=== PATIENT | male | born 1960 | race Caucasian/White ===

== ENCOUNTER 2020-06-05 15:31 | Emergency (ER) | payer OTHER ==
[2020-06-05 15:43] VITALS: RESP 18; TEMP 97.9
--- NOTE | 2020-06-05 16:21 | ED ---
General Adult HPI - General Chief complaint: Fall Stated complaint: headache Time Seen by Provider: 06/05/20 15:48 Source: patient, RN notes reviewed, old records reviewed Mode of arrival: ambulatory Limitations: no limitations - History of Present Illness Initial comments: 60-year-old male presenting from jail with [facility], head trauma that occurr ed yesterday. The patient had been taking a shower, he fell hitting his head. Staff Initially informed that he did not hit his head but today he states that he did hit his head and also is complaining of some left knee pain. Patient reports that he lost consciousness. He complains of a mild headache. He denies chest pain or dyspnea. Denies abdominal pain. Denies fever. Denies focal numbness or weakness. - Related Data Home Medications Medication Instructions Recorded Confirmed Acetaminophen Tab [Tylenol] 650 mg PO Q6H PRN 06/05/20 06/05/20 Albuterol Sulfate [Proair 1 puff INHALATION RT-Q6H 06/05/20 06/05/20 Respiclick] Albuterol Sulfate [Proair 1 puff INHALATION RT-Q6H PRN 06/05/20 06/05/20 Respiclick] Dexamethasone 6 mg PO DAILY 06/05/20 06/05/20 Insulin NPH/Reg Insulin 70/30 100 unit SQ BID@0900,1700 06/05/20 06/05/20 [humuLIN 70/30 VIAL] Loperamide HCl [Imodium A-D] 4 mg PO Q2H PRN 06/05/20 06/05/20 Metoprolol Tartrate [Lopressor] 25 mg PO BID@0900,1700 06/05/20 06/05/20 Pantoprazole Sodium [Protonix] 40 mg PO BID@0900,1700 06/05/20 06/05/20 Sucralfate [Carafate] 1 gm PO ACHS 06/05/20 06/05/20 Allergies Allergy/AdvReac Type Severity Reaction Status Date / Time No Known Allergies Allergy Verified 06/05/20 17:21 Review of Systems ROS Statement: Those systems with pertinent positive or pertinent negative responses have been documented in the HPI. ROS Other: All systems not noted in ROS Statement are negative. Past Medical History Past Medical History: Diabetes Mellitus, Sleep Apnea/CPAP/BIPAP Past Surgical History: No Surgical Hx Reported Past Psychological History: No Psychological Hx Reported Smoking Status: Current every day smoker Past Alcohol Use History: None Reported Past Drug Use History: None Reported General Exam Limitations: no limitations General appearance: alert, in no apparent distress Head exam: Present: atraumatic, normocephalic Eye exam: Present: normal appearance, PERRL ENT exam: Present: normal exam Neck exam: Present: normal inspection. Absent: tenderness, meningismus Respiratory exam: Present: normal lung sounds bilaterally. Absent: respiratory distress, wheezes GI/Abdominal exam: Present: soft. Absent: distended, tenderness, guarding Extremities exam: Present: joint swelling (Minimal ecchymosis at the left knee, no deformity) Neurological exam: Present: alert. Absent: motor sensory deficit Psychiatric exam: Present: normal affect, normal mood Skin exam: Present: warm, dry, intact. Absent: cyanosis, diaphoretic Course Vital Signs 06/05/20 06/05/20 15:34 17:42 Temperature 97.9 F Pulse Rate 85 94 Respiratory 18 18 Rate Blood Pressure 117/62 130/71 O2 Sat by Pulse 97 98 Oximetry Medical Decision Making - Medical Decision Making 60-year-old male status post fall with left knee pain, head injury, no loss consciousness. No anticoagulation. Head CT performed which is negative for intracranial hemorrhage or mass effect. CT of the cervical spine is negative for fracture or subluxation. The fall did occur yesterday. There was some minimal ecchymosis on the anterior left knee. X-ray performed which is negative for acute fracture dislocation. Patient is stable for discharge back to the jail. Disposition Clinical Impression: Fall, Contusion, knee, Concussion Disposition: HOME SELF-CARE Condition: Fair Instructions (If sedation given, give patient instructions): Fall Prevention for Older Adults (ED), Knee Sprain (ED), Concussion (ED) Is patient prescribed a controlled substance at d/c from ED?: No Referrals: Mariah Marie MD [Primary Care Provider] - 1-2 days Time of Disposition: 17:46
--- NOTE | 2020-06-05 17:04 | CT ---
EXAMINATION TYPE: CT brain carlos gerber con DATE OF EXAM: 06/05/2020 COMPARISON: None HISTORY: Fall. Injury to left side of head. CT DLP: 2530.7 mGycm Automated exposure control for dose reduction was used. Ventricles have normal size. There is no mass effect nor midline shift. There is no sign of intracran ial hemorrhage. There is cerebral atrophy. Calvarium is intact. There is some mucosal thickening in t he ethmoid and right maxillary sinus. There is calcification of the left globe. Cervical vertebra have normal alignment. Posterior elements are intact. There is multilevel mild cerv ical facet arthropathy. There is some narrowing and spur formation at C5-6 and C6-7. There is moderat e anterior osteophyte formation. There is calcified posterior disc herniation at C5-6 and elevation o f the posterior longitudinal ligament. There is some spinal stenosis at C5-6 on the right side with n eural foraminal impingement. IMPRESSION: No acute intracranial abnormality. Mild cerebral atrophy. Spondylotic changes in the cervical spine with right side C5-6 and C6-7 disc herniation and neural fo raminal impingement. No fracture.
--- NOTE | 2020-06-05 17:07 | XR ---
EXAMINATION TYPE: XR knee complete LT DATE OF EXAM: 06/05/2020 COMPARISON: NONE HISTORY: Knee pain TECHNIQUE: 3 views FINDINGS: There is some narrowing of the lateral joint space with spur formation of the femoral and t ibial condyles. I see no fracture nor dislocation. There is small knee joint effusion. There is spurr ing on the patella. IMPRESSION: Osteoarthritis more noticeable in the lateral joint space. No fracture seen.
[2020-06-05] MEDS ORDERED: HYDROcodone/APAP 5-325MG 1 EACH TAB PO STA (17:43)
[2020-06-05 17:44] VITALS: BP 130/71; PULSE 94
== END 2020-06-05 18:18 | disposition home or self-care (01) ==
LOC: EC 15:31
DX: S06.0X9A Concussion with loss of consciousness of unspecified duration, initial encounter (principal); S80.02XA Contusion of left knee, initial encounter; E11.9 Type 2 diabetes mellitus without complications; G47.30 Sleep apnea, unspecified; F17.200 Nicotine dependence, unspecified, uncomplicated; Z79.52 Long term (current) use of systemic steroids; Z79.4 Long term (current) use of insulin; Z79.899 Other long term (current) drug therapy; Z99.89 Dependence on other enabling machines and devices; W18.00XA Striking against unspecified object with subsequent fall, initial encounter; Y93.E1 Activity, personal bathing and showering
CPT/HCPCS: 70450; 72125; 99284

== ENCOUNTER 2020-06-07 07:41 | Inpatient (IN) | payer MEDICARE, OTHER ==
[2020-06-07] MEDS ORDERED: PANTOPRAZOLE 40 MG/10 ML VIAL IVP STA (07:53)
[2020-06-07] MEDS ORDERED: SODIUM CHLORIDE 0.9% 1,000 ML IV STA (07:53)
--- NOTE | 2020-06-07 07:56 | ED ---
General Adult HPI - General Chief complaint: Weakness Stated complaint: GI bleed Time Seen by Provider: 06/07/20 07:44 Source: patient, EMS, RN notes reviewed Mode of arrival: EMS Limitations: no limitations - History of Present Illness Initial comments: Patient is a pleasant 60-year-old male presenting to the emergency Department with reported change hemorrhage. Patient is unclear if stools have been red or black, stating he cannot look down there. Patient was admitted for [facility] facility several weeks ago. Patient was weak and could not walk around. Patient was then placed in [facility]. Patient had blood work done yesterday with hemoglobin of 5.7. Patient omits to feeling a little bit fatigued otherwise has no complaints. - Related Data Home Medications Medication Instructions Recorded Confirmed Acetaminophen Tab [Tylenol] 650 mg PO Q6H PRN 06/05/20 06/05/20 Albuterol Sulfate [Proair 1 puff INHALATION RT-Q6H 06/05/20 06/05/20 Respiclick] Albuterol Sulfate [Proair 1 puff INHALATION RT-Q6H PRN 06/05/20 06/05/20 Respiclick] Dexamethasone 6 mg PO DAILY 06/05/20 06/05/20 Insulin NPH/Reg Insulin 70/30 100 unit SQ BID@0900,1700 06/05/20 06/05/20 [humuLIN 70/30 VIAL] Loperamide HCl [Imodium A-D] 4 mg PO Q2H PRN 06/05/20 06/05/20 Metoprolol Tartrate [Lopressor] 25 mg PO BID@0900,1700 06/05/20 06/05/20 Pantoprazole Sodium [Protonix] 40 mg PO BID@0900,1700 06/05/20 06/05/20 Sucralfate [Carafate] 1 gm PO ACHS 06/05/20 06/05/20 Allergies Allergy/AdvReac Type Severity Reaction Status Date / Time No Known Allergies Allergy Verified 06/07/20 07:52 Review of Systems ROS Statement: Those systems with pertinent positive or pertinent negative responses have been documented in the HPI. ROS Other: All systems not noted in ROS Statement are negative. Constitutional: Denies: fever Eyes: Denies: eye pain ENT: Denies: ear pain Respiratory: Denies: cough, dyspnea Cardiovascular: Denies: chest pain Endocrine: Reports: fatigue Gastrointestinal: Denies: abdominal pain Genitourinary: Denies: dysuria Musculoskeletal: Denies: back pain Skin: Denies: rash Neurological: Denies: weakness Past Medical History Past Medical History: Diabetes Mellitus, Sleep Apnea/CPAP/BIPAP Past Surgical History: No Surgical Hx Reported Past Psychological History: No Psychological Hx Reported Smoking Status: Former smoker Past Alcohol Use History: None Reported Past Drug Use History: Marijuana General Exam Limitations: no limitations General appearance: alert, in no apparent distress Head exam: Present: normocephalic Eye exam: Present: normal appearance Neck exam: Present: normal inspection Respiratory exam: Present: normal lung sounds bilaterally Cardiovascular Exam: Present: regular rate, normal rhythm GI/Abdominal exam: Present: soft. Absent: tenderness Extremities exam: Present: normal inspection Neurological exam: Present: alert Psychiatric exam: Present: normal affect, normal mood Skin exam: Present: normal color Course Vital Signs 06/07/20 07:47 Temperature 99.6 F Pulse Rate 86 Respiratory 18 Rate Blood Pressure 123/66 O2 Sat by Pulse 97 Oximetry EKG Findings - EKG Comments: EKG Findings:: Normal sinus rhythm at 88. NE 184. QRS and 16. QT 376. QTc 454. Normal axis. LVH. No acute ST change. Medical Decision Making - Medical Decision Making Patient reevaluated and resting comfortably in bed. Patient updated on results and plan.Case was discussed with Dr. Marie, who will admit her patient. Blood transfusion ordered. Results with GI and pulmonary. - Lab Data Result diagrams: 06/07/20 08:22 06/07/20 08:22 Lab Results 06/07/20 06/07/20 06/07/20 Range/Units 08:22 08:22 08:22 WBC 33.3 H (3.8-10.6) k/uL RBC 2.00 L (4.30-5.90) m/uL Hgb 5.8 L* (13.0-17.5) gm/dL Hct 17.5 L* (39.0-53.0) % MCV 87.9 (80.0-100.0) fL MCH 29.0 (25.0-35.0) pg MCHC 33.0 (31.0-37.0) g/dL RDW 21.2 H (11.5-15.5) % Plt Count 304 (150-450) k/uL MPV 8.6 Hypochromasia Slight Anisocytosis Moderate Macrocytosis Slight PT 10.6 (9.0-12.0) sec INR 1.0 (<1.2) APTT 20.1 L (22.0-30.0) sec Sodium 135 L (137-145) mmol/L Potassium 4.1 (3.5-5.1) mmol/L Chloride 99 (98-107) mmol/L Carbon Dioxide 34 H (22-30) mmol/L Anion Gap 2 mmol/L BUN 25 H (9-20) mg/dL Creatinine 0.76 (0.66-1.25) mg/dL Est GFR (CKD-EPI)AfAm >90 (>60 ml/min/1.73 sqM) Est GFR (CKD-EPI)NonAf >90 (>60 ml/min/1.73 sqM) Glucose 117 H (74-99) mg/dL Calcium 8.0 L (8.4-10.2) mg/dL Total Bilirubin 0.4 (0.2-1.3) mg/dL AST 53 (17-59) U/L ALT 83 H (4-49) U/L Alkaline Phosphatase 60 (38-126) U/L Total Protein 5.0 L (6.3-8.2) g/dL Albumin 2.5 L (3.5-5.0) g/dL - Radiology Data Radiology results: image reviewed (Chest x-ray does show cardiomegaly. Bilateral multifocal acute infiltrates more on the left, consider Coban 19 infection.) Critical Care Time Critical Care Time: Yes Total Critical Care Time: 31 Disposition Clinical Impression: GI hemorrhage, Pneumonia due to COVID-19 virus Disposition: ADMITTED IP TO THIS [facility] Condition: Serious Is patient prescribed a controlled substance at d/c from ED?: No Referrals: Mariah Marie MD [Primary Care Provider] - 1-2 days Decision Time: 09:10
[2020-06-07 08:30] LABS: Anisocytosis Moderate; Hypochromasia Slight; MCV 87.9 fL (80.0-100.0); Macrocytosis Slight; Mean Platelet Volume 8.6; Platelet Count 304 k/uL (150-450); RDW 21.2 % (11.5-15.5)
--- NOTE | 2020-06-07 08:37 | XR ---
EXAMINATION TYPE: XR chest 1V portable DATE OF EXAM: 06/07/2020 COMPARISON: NONE HISTORY: Chest pain. TECHNIQUE: Single AP portable frontal upright view of the chest is obtained. FINDINGS: There are multifocal increased opacity is greatest in the left lung periphery. No pleural effusion or pneumothorax seen bilaterally. The cardiac silhouette size is mildly enlarged. Degenerat saurabh change bilateral glenohumeral joints. Overlying EKG leads. IMPRESSION: Cardiomegaly with bilateral multifocal acute infiltrates greatest in the left lung. Cons ider covid-19 infection.
[2020-06-07 08:38] LABS: HCT 17.5 % (39.0-53.0); HGB 5.8 gm/dL (13.0-17.5)
[2020-06-07 08:46] LABS: ALT 83 U/L (4-49); AST 53 U/L (17-59); African American GFR (CKD) >90 (>60 ml/min/1.73 sqM); Albumin 2.5 g/dL (3.5-5.0); Alkaline Phosphatase 60 U/L (38-126); Anion Gap 2 mmol/L; Blood Urea Nitrogen 25 mg/dL (9-20); Carbon Dioxide 34 mmol/L (22-30); Chloride 99 mmol/L (98-107); Glucose 117 mg/dL (74-99); Non-African American GFR(CKD) >90 (>60 ml/min/1.73 sqM); Potassium 4.1 mmol/L (3.5-5.1); Prothrombin Time 10.6 sec (9.0-12.0); Sodium 135 mmol/L (137-145); Total Bilirubin 0.4 mg/dL (0.2-1.3)
[2020-06-07 08:52] LABS: Partial Thromboplastin Time 20.1 sec (22.0-30.0)
[2020-06-07] MEDS ORDERED: NALOXONE 0.4 MG/ML 1 ML VIAL IV PRN (09:11)
[2020-06-07 09:14] LABS: Band Neutrophils % 3 %; Basophils # (M) 0.33 k/uL (0-0.2); Metamyelocytes % 2 %; Myelocytes # (M) 0.33 k/uL (0); Myelocytes % 1 %; Neutrophils % (M) 79 %; Nucleated Red Blood Cells 1 /100 WBC (0-0); Total Cells Counted 200
[2020-06-07 09:15] LABS: Lymphocytes # (M) 3.63 k/uL (1.0-4.8); Metamyelocytes # (M) 0.66 k/uL (0); Monocytes # (M) 1.32 k/uL (0-1.0); Polychromasia Present
[2020-06-07] MEDS ORDERED: PANTOPRAZOLE 40 MG/10 ML VIAL IV SCH (09:15)
[2020-06-07] MEDS ORDERED: ACETAMINOPHEN TAB 325 MG TAB PO PRN (09:49)
[2020-06-07] MEDS ORDERED: ALBUTEROL HFA INHALER INHALATION PRN (09:49)
[2020-06-07 09:55] LABS: Appearance,Urine Clear (Clear); Bilirubin,Urine Negative (Negative); Blood,Urine Negative (Negative); Color,Urine Light Yellow; Glucose,Urine (UA) 1+ (Negative); Ketones,Urine Negative (Negative); Leukocyte Esterase,Urine Negative (Negative); Nitrite,Urine Negative (Negative); Protein,Urine Negative (Negative); Specific Gravity,Urine 1.015 (1.001-1.035); Urobilinogen,Urine <2.0 mg/dL (<2.0)
[2020-06-07] MEDS: CHOLECALCIFEROL 25 MCG (1000 IU) TABLET PO SCH ×2 (10:52→10:54)
[2020-06-07] MEDS: ZINC SULFATE 220 MG CAP PO SCH ×2 (10:53→10:55)
[2020-06-07] MEDS: ASCORBIC ACID 500 MG TAB PO SCH ×2 (10:53→21:20)
[2020-06-07] MEDS: CLOTRIMAZOLE/BETAMETH 1-0.05% CREAM 45 GM TUBE TOPICAL SCH (10:55)
[2020-06-07 11:30] LABS: Glucose,Whole Blood 71 mg/dL (75-99)
[2020-06-07] MEDS: INSULIN ASPART (NovoLOG) 100 UNIT/ML VIAL SQ SCH ×3 (13:16→21:20)
[2020-06-07] MEDS: SODIUM CHLORIDE 0.9% 1,000 ML IV SCH ×2 (13:21→17:42)
[2020-06-07] MEDS: SUCRALFATE 1 GM TAB PO SCH ×3 (13:21→21:20)
--- NOTE | 2020-06-07 15:39 | P.CNPUL ---
History of Present Illness Consult date: 06/07/20 Reason for consult: dyspnea, other Chief complaint: Acute GI blood loss anemia, recent COVID 19 History of present illness: This is a 60-year-old white male patient of Dr. Marie, with recent history of COVID 19 related pneumonia, hospitalized at the [facility] and subsequently discharged to [facility] on the [facility] following his hospitalization. He was on oxygen at the care home at 3 L/m, he was still completing his course of oral Decadron 6 mg daily, the patient was not on any anticoagulants. He was brought into the hospital on 06/07/2020 for evaluation of severe anemia, he is outpatient blood work at the [facility] revealed hemoglobin of 5.7, patient is unsure whether his stools have been red or black, he did report weakness, and he was having difficulty walking at the [facility]. No abdominal discomf ort, patient had no prior history of GI bleeding, no prior history of colonoscopies. He is not on any chronic anticoagulation aspirin, or NSAIDs. His medical history includes diabetes mellitus type 2, obstructive sleep apnea on CPAP therapy, he is former smoker, chronic diastolic CHF, previous history of myocardial infarction, secondary polycythemia, muscle weakness, and gait dysfunction. His chest x-ray showed cardiomegaly with bilateral multifocal acute infiltrates, greatest in the left lung. His crit was 19 PCR a retest was negative. His white count was 33, his hemoglobin was 5.8, hematocrit was 17.5, his neutrophils were 27, INR was 1.0, PT was 10.6, sodium was 135, potassium is 4.1, chloride was 99, CO2 34, BUN was 25, creatinine was 0.76, AST was 53, ALT was 83, alkaline phosphatase was 60, urinalysis showed 1+ glucose but no evidence of infection, stool for occult blood was positive. Patient is receiving 2 units of packed red blood cell transfusion in the emergency departm ent, he is also getting IV fluids at 100 ML per hour, he was started on Protonix, there has been no active bleeding thus far, GI consultation was requested and is pending at this time, he continues on his oral dexamethasone 6 mg daily, does not appear to be in any acute respiratory distress. He is in sinus mechanism with a controlled rate, no tachycardia, he is on room air with a pulse ox of 95%, blood pressure is 126/74. Review of Systems All systems: negative Constitutional: Reports fatigue, Reports malaise, Reports weakness, Denies chills, Denies fever Eyes: denies blurred vision, denies pain Ears, nose, mouth and throat: Denies headache, Denies sore throat Cardiovascular: Denies chest pain, Denies shortness of breath Respiratory: Reports dyspnea, Reports respiratory infections, Denies cough Gastrointestinal: Denies abdominal pain, Denies diarrhea, Denies nausea, Denies vomiting Musculoskeletal: Denies myalgias Integumentary: Denies pruritus, Denies rash Neurological: Denies numbness, Denies weakness Psychiatric: Denies anxiety, Denies depression Endocrine: Denies fatigue, Denies weight change Past Medical History Past Medical History: Diabetes Mellitus, Sleep Apnea/CPAP/BIPAP Past Surgical History: No Surgical Hx Reported Past Psychological History: No Psychological Hx Reported Smoking Status: Former smoker Past Alcohol Use History: None Reported Past Drug Use History: Marijuana Medications and Allergies Home Medications Medication Instructions Recorded Confirmed Type Acetaminophen Tab [Tylenol] 650 mg PO Q6H PRN 06/05/20 06/07/20 History Albuterol Sulfate [Proair 1 puff INHALATION RT-Q6H 06/05/20 06/07/20 History Respiclick] Albuterol Sulfate [Proair 1 puff INHALATION RT-Q6H PRN 06/05/20 06/07/20 History Respiclick] Dexamethasone 6 mg PO DAILY@0900 06/05/20 06/07/20 History Insulin NPH/Reg Insulin 70/30 100 unit SQ BID@0900,1700 06/05/20 06/07/20 History [humuLIN 70/30 VIAL] Loperamide HCl [Imodium A-D] 4 mg PO Q2H PRN 06/05/20 06/07/20 History Metoprolol Tartrate [Lopressor] 25 mg PO BID@0900,1700 06/05/20 06/07/20 History Pantoprazole Sodium [Protonix] 40 mg PO BID@0900,1700 06/05/20 06/07/20 History Sucralfate [Carafate] 1 gm PO ACHS 06/05/20 06/07/20 History Clotrimazole/Betameth Cream 1 applic TOPICAL Q12H 06/07/20 06/07/20 History [Lotrisone] Zguard 1 applic TOPICAL Q12H 06/07/20 06/07/20 History Allergies Allergy/AdvReac Type Severity Reaction Status Date / Time No Known Allergies Allergy Verified 06/07/20 09:10 Physical Exam Vitals: Vital Signs Temp Pulse Resp BP Pulse Ox 06/07/20 14:30 84 10 L 130/75 98 06/07/20 14:00 77 16 126/74 97 06/07/20 13:33 97.8 F 86 20 126/74 95 06/07/20 13:30 90 29 H 113/68 95 06/07/20 13:07 81 16 113/68 95 06/07/20 13:04 98 F 74 18 132/74 96 06/07/20 13:00 84 24 130/77 94 L 06/07/20 12:59 82 17 130/77 06/07/20 12:30 82 19 109/68 93 L 06/07/20 12:00 89 16 119/69 06/07/20 11:30 87 16 118/73 06/07/20 11:04 98 F 88 18 06/07/20 11:00 80 16 112/65 06/07/20 10:34 98 F 92 18 112/65 98 06/07/20 10:30 90 17 123/70 06/07/20 10:25 98 F 86 18 123/70 06/07/20 10:00 105 H 18 118/67 06/07/20 09:30 85 18 110/58 97 06/07/20 09:00 87 18 115/87 95 06/07/20 07:47 99.6 F 86 18 123/66 97 Intake and Output 06/07/20 06/07/20 06/07/20 06:59 14:59 22:59 Intake Total 278 Balance 278 Intake: Blood Product 278 Rc Pheresis As-3 Unit 0 [id number] Rc Pheresis As-3 Unit 278 [id number] Other: Weight 104.326 kg GENERAL EXAM: Alert, pleasant, 60-year-old white male, resting on the gurney in the emergency department, receiving a blood transfusion, arousable, room air pulse ox is 98%, appears somewhat disheveled, weak, but denies any acute distress, comfortable. HEAD: Normocephalic/atraumatic. EYES: Normal reaction of pupils, equal size. Conjunctiva pink, sclera white. NOSE: Clear with pink turbinates. THROAT: No erythema or exudates. NECK: No masses, no JVD, no thyroid enlargement, no adenopathy. CHEST: No chest wall deformity. Symmetrical expansion. LUNGS: Equal air entry with no crackles, wheeze, rhonchi or dullness. CVS: Regular rate and rhythm, normal S1 and S2, no gallops, no murmurs, no rubs ABDOMEN: Soft, nontender. No hepatosplenomegaly, normal bowel sounds, no guarding or rigidity. EXTREMITIES: No clubbing, no edema, no cyanosis, 2+ pulses and upper and lower extremities. MUSCULOSKELETAL: Muscle strength and tone normal. SPINE: No scoliosis or deformity SKIN: No rashes CENTRAL NERVOUS SYSTEM: Alert and oriented -3. No focal deficits, tone is normal in all 4 extremities. PSYCHIATRIC: Alert and oriented -3. Appropriate affect. Intact judgment and insight. Results - Laboratory Findings CBC and BMP: 06/07/20 08:22 06/07/20 08:22 PT/INR, D-dimer PT 10.6 sec (9.0-12.0) 06/07/20 08:22 INR 1.0 (<1.2) 06/07/20 08:22 Abnormal lab findings: Abnormal Labs 06/07/20 06/07/20 06/07/20 08:15 08:22 08:22 WBC 33.0 H RBC 2.00 L Hgb 5.8 L* Hct 17.5 L* RDW 21.2 H Neutrophils # (Manual) 27.00 H Monocytes # (Manual) 1.32 H Basophils # (Manual) 0.33 H Metamyelocytes # (Man) 0.66 H Myelocytes # (Manual) 0.33 H Nucleated RBCs 1 H APTT 20.1 L Sodium Carbon Dioxide BUN Glucose POC Glucose (mg/dL) Calcium ALT Total Protein Albumin Urine Glucose (UA) Crossmatch See Detail 06/07/20 06/07/20 06/07/20 08:22 09:28 11:24 WBC RBC Hgb Hct RDW Neutrophils # (Manual) Monocytes # (Manual) Basophils # (Manual) Metamyelocytes # (Man) Myelocytes # (Manual) Nucleated RBCs APTT Sodium 135 L Carbon Dioxide 34 H BUN 25 H Glucose 117 H POC Glucose (mg/dL) 71 L Calcium 8.0 L ALT 83 H Total Protein 5.0 L Albumin 2.5 L Urine Glucose (UA) 1+ H Crossmatch - Diagnostic Findings Chest x-ray: report reviewed, image reviewed Assessment and Plan Plan: Assessment: #1. Acute GI blood loss anemia, patient presented with a hemoglobin of 5.8, requiring transfusion with 2 units of packed red blood cells #2. Recent history of COVID 19 pneumonia, patient was undergone rehab at the [facility] on the [place], was still completing his Decadron course. Was not on any anticoagulation at the [facility] #3. Leukocytosis, rule out possibility of pneumonia, although patient denies any significant pulmonary symptoms #4. Chronic hypoxic respiratory failure related to recent history of COVID19 pneumonia #5. Former smoker #6. Diabetes mellitus type 2 #7. History of sleep apnea on CPAP #8. Previous history of myocardial infarction #9. Previous history of chronic CHF, with a diastolic dysfunction #10. General medical debility, gait instability, recent falls Plan: Continue IV hydration, continue blood transfusion, patient is receiving a total of 2 units of blood, has had no active bleeding since coming in to the emergency department, he is awaiting a bed in the intensive care unit, hemodynamically he is stable, mild shortness of breath, no acute respiratory distress, we'll send a pro-calcitonin level, he continues on oral Decadron, vitamins, apply SCDs to lower extremities, continue PPI therapy, GI consultation is pending, continue monitoring for signs of bleeding, serial H&H's, close hemodynamic monitoring. We will continue to follow I performed a history & physical examination of the patient and discussed their management with my nurse practitioner, Lorie Talamantes. I reviewed the nurse practitioner's note and agree with the documented findings and plan of care. Lung sounds are positive for diminished breath sounds. The findings and the impression was discussed with the patient. I attest to the documentation by the nurse practitioner. Time with Patient: Greater than 30
[2020-06-07 16:51] LABS: Glucose,Whole Blood 61 mg/dL (75-99)
[2020-06-07 16:51] LABS: Glucose,Whole Blood 61 mg/dL (75-99)
[2020-06-07 17:00] LABS: Glucose,Whole Blood 61 mg/dL (75-99)
[2020-06-07 17:03] LABS: Anisocytosis Slight; HCT 23.5 % (39.0-53.0); Hypochromasia Slight; MCH 29.3 pg (25.0-35.0); MCHC 32.9 g/dL (31.0-37.0); MCV 88.8 fL (80.0-100.0); Macrocytosis Slight; Platelet Count 258 k/uL (150-450); Poikilocytosis Slight; RBC 2.65 m/uL (4.30-5.90); RDW 19.9 % (11.5-15.5)
[2020-06-07] MEDS: INSULN ASP PRT/INSULIN ASPART 100 UNIT/ML 10 ML VIAL SQ SCH (17:04)
[2020-06-07 17:17] LABS: Glucose,Whole Blood 74 mg/dL (75-99)
[2020-06-07 17:19] LABS: HGB 7.8 gm/dL (13.0-17.5)
[2020-06-07 17:36] LABS: Band Neutrophils % 3 %; Lymphocytes # (M) 4.83 k/uL (1.0-4.8); Monocytes # (M) 0.91 k/uL (0-1.0); Neutrophils % (M) 79 %; Nucleated Red Blood Cells 1 /100 WBC (0-0); Polychromasia Present; Total Cells Counted 200; WBC 30.2 k/uL (3.8-10.6)
[2020-06-07] MEDS: METOPROLOL TARTRATE 25 MG TAB PO SCH (18:37)
--- NOTE | 2020-06-07 18:50 | P.HPIM ---
History of Present Illness H&P Date: 06/07/20 Chief Complaint: Anemia, blood loss, fatigue burgundy stools This is a 60-year-old gentleman with known history of diabetes mellitus type 2, who was transferred from [facility] in [place] [facility] secondary to burgundy stools. He also has elevated troponin vital pneumonia hypoxemia rest or failure on BiPAP, bacteriuria without pyuria, acute renal insufficiency, elevated transaminitis, and his abdomen mild lysis. He comes in from [facility], for which he presented on 05/28/2020 for a 2 day history of shortness of breath. Was diagnosed to have Covid infection at that time. And admitted to ICU at that time and also had arm blood loss anemia, for which she was seen by gastroenterology.. He was discharged to [facility] in [place] [facility] on 06/03/2020 for short-term rehabilitation. We did stat labs and hemoglobin was 5.9, he was immediately transferred to the emergency room for evaluation. He was recently diagnosed to have covid infection s/p convalescent plasma, he was not a candidate for 7 days of ear that time secondary to elevation of transaminase. Received low-dose heparin Lovenox 40 mg daily, discharged with dexamethasone to complete 10 days. on dexamethasonne, hx of COPD, quit tob 3-4 wks ago Imaging studies are not [facility], shows type II NJ with demand ischemia, from sepsis and rhabdo, EF 55%, with mild apical and septal hypokinesia. She also was tested for C. diff which was negative, has always azotemia most likely secondary to hemoconcentration, he was discharged facility with Carafate before meals and at bedtime, loperamide, dexamethasone 6 mg daily, metoprolol, Protonix 40 twice a day. Heart cath was 2005, EF 60%, normal coronaries. Hemoglobin was 10.4 on discharge from the other facility, with platelets of 253. WBC count of 13.51 In the emergency room, we have seen he is agitated, that he voided in his [place], and he's been waiting for 20 minutes to have somebody cleanup he is blanket. Nurses are assisting him currently. He was sinus rhythm, EKG shows LVH, heart rate 88, blood pressure is stable, 126/74, heart rate 77, T-max 97.6, O2 sats 97%, on room air, wbc 30k hemoglobin 5.9 occult stools positive, Covid negative patient would be seen consultation by pulmonary, and gas and nephrology. Patient might have steroid induced gastritis, dexamethasone is on hold, continue PPIs 40 twice a day Protonix, transfuse 2 units of packed red blood cell for initial hemoglobin of 5.9. inr1 0.0 Review of Systems Constitutional: Reports as per HPI, Denies anorexia, Denies chills, Denies chronic headaches, Denies chronic pain, Denies daytime sleepiness, Denies fatigue, Denies fever, Denies lethargy, Denies malaise, Denies night sweats, Denies poor appetite, Denies sweats, Denies weakness, Denies weight gain, Denies weight loss Ears, nose, mouth and throat: Reports as per HPI, Denies ant. neck pain, Denies bleeding gums, Denies dental pain, Denies dysphagia, Denies epistaxis, Denies headache, Denies hoarseness, Denies mouth pain, Denies nasal congestion, Denies nasal discharge, Denies neck fullness/pressure, Denies neck lump, Denies nose pain, Denies odynophagia, Denies post-nasal drip, Denies sinus pain, Denies sinus pressure, Denies swelling in mouth, Denies swelling in throat, Denies sore throat, Denies vertigo, Denies voice changes Cardiovascular: Reports as per HPI, Reports dyspnea on exertion Respiratory: Reports as per HPI, Denies congestion, Denies cough, Denies cough with sputum, Denies dyspnea, Denies excessive sputum, Denies hemoptysis, Denies home oxygen, Denies pain, Denies pain on inspiration, Denies pleurisy, Denies respiratory infections, Denies sleep apnea, Denies snoring, Denies wheezing Gastrointestinal: Reports as per HPI Genitourinary: Reports as per HPI Musculoskeletal: Reports as per HPI, Denies arm numbness/tingling, Denies atrophy, Denies fractures, Denies frequent falls, Denies gait dysfunction, Denies hot joints, Denies leg numbness/tingling, Denies limitation of motion, Denies loss of height, Denies low back pain, Denies morning stiffness, Denies muscle cramps, Denies muscle weakness, Denies myalgias, Denies neck pain, Denies neck stiffness, Denies prior amputations, Denies redness of joints, Denies shooting arm pain, Denies shooting leg pain Integumentary: Reports as per HPI, Denies acne, Denies boils, Denies brittle nails, Denies change in hair/nails, Denies color changes, Denies darkening of skin, Denies depigmentation, Denies dryness, Denies foot/leg ulcers, Denies growths, Denies hirsutism, Denies lesions, Denies onychomycosis, Denies pruritus, Denies rash, Denies sores, Denies striae, Denies unusual bruising, De nies wounds Neurological: Reports as per HPI, Denies aphasia, Denies ataxia, Denies balance difficulties, Denies burning pain, Denies change in mentation, Denies change in smell/taste, Denies change in speech, Denies confusion, Denies convulsions, Denies double vision, Denies gait dysfunction, Denies head injury, Denies headaches, Denies hearing difficulties, Denies lack of coordination, Denies loss of vision, Denies memory loss, Denies migraines, Denies motor disturbance, Denies numbness, Denies paralysis, Denies paresthesias, Denies seizures, Denies sensory deficit, Denies spasticity, Denies syncope, Denies tic, Denies tingling, Denies transient paralysis, Denies tremors, Denies vertigo, Denies weakness, Denies visual changes Psychiatric: Reports as per HPI, Reports irritability Hematologic/Lymphatic: Reports as per HPI Allergic/Immunologic: Reports as per HPI Past Medical History Past Medical History: Diabetes Mellitus, Sleep Apnea/CPAP/BIPAP History of Any Multi-Drug Resistant Organisms: None Reported Past Surgical History: No Surgical Hx Reported Past Anesthesia/Blood Transfusion Reactions: No Reported Reaction Past Psychological History: No Psychological Hx Reported Smoking Status: Former smoker Past Alcohol Use History: None Reported Past Drug Use History: Marijuana Additional History: Sleep apnea COPD - Past Family History Father History Unknown: Yes Family Medical History: Coronary Artery Disease (CAD) Mother History Unknown: Yes Family Medical History: Coronary Artery Disease (CAD) Additional Family Medical History / Comment(s): 5 brothers healthy, 5 sisters okay, 1 boy and 1 girl, with asthma Medications and Allergies Home Medications Medication Instructions Recorded Confirmed Type Acetaminophen Tab [Tylenol] 650 mg PO Q6H PRN 06/05/20 06/07/20 History Albuterol Sulfate [Proair 1 puff INHALATION RT-Q6H 06/05/20 06/07/20 History Respiclick] Albuterol Sulfate [Proair 1 puff INHALATION RT-Q6H PRN 06/05/20 06/07/20 History Respiclick] Dexamethasone 6 mg PO DAILY@0900 06/05/20 06/07/20 History Insulin NPH/Reg Insulin 70/30 100 unit SQ BID@0900,1700 06/05/20 06/07/20 History [humuLIN 70/30 VIAL] Loperamide HCl [Imodium A-D] 4 mg PO Q2H PRN 06/05/20 06/07/20 History Metoprolol Tartrate [Lopressor] 25 mg PO BID@0900,1700 06/05/20 06/07/20 History Pantoprazole Sodium [Protonix] 40 mg PO BID@0900,1700 06/05/20 06/07/20 History Sucralfate [Carafate] 1 gm PO ACHS 06/05/20 06/07/20 History Clotrimazole/Betameth Cream 1 applic TOPICAL Q12H 06/07/20 06/07/20 History [Lotrisone] Zguard 1 applic TOPICAL Q12H 06/07/20 06/07/20 History Allergies Allergy/AdvReac Type Severity Reaction Status Date / Time No Known Allergies Allergy Verified 06/07/20 09:10 Physical Exam Vitals: Vital Signs Temp Pulse Pulse Resp BP BP Pulse Ox 06/07/20 16:52 97.6 F 79 20 130/64 94 L 06/07/20 16:00 83 20 145/76 92 L 06/07/20 15:41 97.6 F 80 20 135/66 06/07/20 14:30 84 10 L 130/75 98 06/07/20 14:00 77 16 126/74 97 06/07/20 13:33 97.8 F 86 20 126/74 95 06/07/20 13:30 90 29 H 113/68 95 06/07/20 13:07 81 16 113/68 95 06/07/20 13:04 98 F 74 18 132/74 96 06/07/20 13:00 84 24 130/77 94 L 06/07/20 12:59 82 17 130/77 06/07/20 12:30 82 19 109/68 93 L 06/07/20 12:00 89 16 119/69 06/07/20 11:30 87 16 118/73 06/07/20 11:04 98 F 88 18 06/07/20 11:00 80 16 112/65 06/07/20 10:34 98 F 92 18 112/65 98 06/07/20 10:30 90 17 123/70 06/07/20 10:25 98 F 86 18 123/70 06/07/20 10:14 97.6 F 80 20 135/66 96 06/07/20 10:00 105 H 18 118/67 06/07/20 09:30 85 18 110/58 97 06/07/20 09:00 87 18 115/87 95 06/07/20 07:47 99.6 F 86 18 123/66 97 Intake and Output 06/07/20 06/07/20 06/07/20 06:59 14:59 22:59 Intake Total 278 283 Balance 278 283 Intake: Blood Product 278 283 Rc Pheresis As-3 Unit 0 283 [id number] Rc Pheresis As-3 Unit 278 [id number] Other: # Voids 0 Weight 104.326 kg - Constitutional General appearance: cooperative, no acute distress - EENT Eyes: EOMI, PERRLA, dentition normal, normal appearance ENT: NA/AT, normal oropharynx - Neck Neck: normal ROM - Respiratory Respiratory: bilateral: CTA, negative: diminished, dullness - Cardiovascular Rhythm: regular Heart sounds: normal: S1, S2 Abnormal Heart Sounds: no systolic murmur, no diastolic murmur, no rub, no S3 Gallop, no S4 Gallop, no click, no other - Gastrointestinal General gastrointestinal: normal bowel sounds, soft - Integumentary Integumentary: normal - Neurologic Neurologic: CNII-XII intact - Musculoskeletal Musculoskeletal: gait normal, strength equal bilaterally - Psychiatric Psychiatric: A&O x's 3, appropriate affect, intact judgment & insight Results CBC & Chem 7: 06/07/20 16:51 06/07/20 08:22 Labs: Abnormal Lab Results - Last 24 Hours (Table) 06/07/20 06/07/20 06/07/20 Range/Units 08:15 08:22 08:22 WBC 33.0 H (3.8-10.6) k/uL RBC 2.00 L (4.30-5.90) m/uL Hgb 5.8 L* (13.0-17.5) gm/dL Hct 17.5 L* (39.0-53.0) % RDW 21.2 H (11.5-15.5) % Neutrophils # (Manual) 27.00 H (1.3-7.7) k/uL Lymphocytes # (Manual) (1.0-4.8) k/uL Monocytes # (Manual) 1.32 H (0-1.0) k/uL Basophils # (Manual) 0.33 H (0-0.2) k/uL Metamyelocytes # (Man) 0.66 H (0) k/uL Myelocytes # (Manual) 0.33 H (0) k/uL Nucleated RBCs 1 H (0-0) /100 WBC APTT 20.1 L (22.0-30.0) sec Sodium (137-145) mmol/L Carbon Dioxide (22-30) mmol/L BUN (9-20) mg/dL Glucose (74-99) mg/dL POC Glucose (mg/dL) (75-99) mg/dL Calcium (8.4-10.2) mg/dL ALT (4-49) U/L Total Protein (6.3-8.2) g/dL Albumin (3.5-5.0) g/dL Urine Glucose (UA) (Negative) Crossmatch See Detail 06/07/20 06/07/20 06/07/20 Range/Units 08:22 09:28 11:24 WBC (3.8-10.6) k/uL RBC (4.30-5.90) m/uL Hgb (13.0-17.5) gm/dL Hct (39.0-53.0) % RDW (11.5-15.5) % Neutrophils # (Manual) (1.3-7.7) k/uL Lymphocytes # (Manual) (1.0-4.8) k/uL Monocytes # (Manual) (0-1.0) k/uL Basophils # (Manual) (0-0.2) k/uL Metamyelocytes # (Man) (0) k/uL Myelocytes # (Manual) (0) k/uL Nucleated RBCs (0-0) /100 WBC APTT (22.0-30.0) sec Sodium 135 L (137-145) mmol/L Carbon Dioxide 34 H (22-30) mmol/L BUN 25 H (9-20) mg/dL Glucose 117 H (74-99) mg/dL POC Glucose (mg/dL) 71 L (75-99) mg/dL Calcium 8.0 L (8.4-10.2) mg/dL ALT 83 H (4-49) U/L Total Protein 5.0 L (6.3-8.2) g/dL Albumin 2.5 L (3.5-5.0) g/dL Urine Glucose (UA) 1+ H (Negative) Crossmatch 06/07/20 06/07/20 06/07/20 Range/Units 16:34 16:35 16:51 WBC 30.2 H (3.8-10.6) k/uL RBC 2.65 L (4.30-5.90) m/uL Hgb 7.8 L D (13.0-17.5) gm/dL Hct 23.5 L (39.0-53.0) % RDW 19.9 H (11.5-15.5) % Neutrophils # (Manual) 24.70 H (1.3-7.7) k/uL Lymphocytes # (Manual) 4.83 H (1.0-4.8) k/uL Monocytes # (Manual) (0-1.0) k/uL Basophils # (Manual) (0-0.2) k/uL Metamyelocytes # (Man) (0) k/uL Myelocytes # (Manual) (0) k/uL Nucleated RBCs 1 H (0-0) /100 WBC APTT (22.0-30.0) sec Sodium (137-145) mmol/L Carbon Dioxide (22-30) mmol/L BUN (9-20) mg/dL Glucose (74-99) mg/dL POC Glucose (mg/dL) 61 L 61 L (75-99) mg/dL Calcium (8.4-10.2) mg/dL ALT (4-49) U/L Total Protein (6.3-8.2) g/dL Albumin (3.5-5.0) g/dL Urine Glucose (UA) (Negative) Crossmatch 06/07/20 06/07/20 Range/Units 16:52 17:14 WBC (3.8-10.6) k/uL RBC (4.30-5.90) m/uL Hgb (13.0-17.5) gm/dL Hct (39.0-53.0) % RDW (11.5-15.5) % Neutrophils # (Manual) (1.3-7.7) k/uL Lymphocytes # (Manual) (1.0-4.8) k/uL Monocytes # (Manual) (0-1.0) k/uL Basophils # (Manual) (0-0.2) k/uL Metamyelocytes # (Man) (0) k/uL Myelocytes # (Manual) (0) k/uL Nucleated RBCs (0-0) /100 WBC APTT (22.0-30.0) sec Sodium (137-145) mmol/L Carbon Dioxide (22-30) mmol/L BUN (9-20) mg/dL Glucose (74-99) mg/dL POC Glucose (mg/dL) 61 L 74 L (75-99) mg/dL Calcium (8.4-10.2) mg/dL ALT (4-49) U/L Total Protein (6.3-8.2) g/dL Albumin (3.5-5.0) g/dL Urine Glucose (UA) (Negative) Crossmatch Thrombosis Risk Factor Assmnt - DVT/VTE Prophylaxis DVT/VTE Prophylaxis: Mechanical Prophylaxis ordered, Contraindicated - See note - Choose All That Apply Each Factor Represents 1 point: Age 41-60 years, Obesity (BMI >25) Thrombosis Risk Factor Assessment Total Risk Factor Score: 2 Thrombosis Risk Factor Assessment Level: Low Risk Assessment and Plan Plan: 1. Acute GI bleed, suspect upper, steroid gastritis most likely secondary to dexamethasone, currently on Protonix 40 mg twice a day, and Carafate 1 g 4 times a day. Consult with gastrology, status post 2 units of packed red blood cell blood transfusion 2. Acute blood loss severe anemia, t requiring 2 units of packed red blood cell transfusion today. 3. Covid diagnosed 05/27/2020, status post convalescent Serum and hypoxemia dexamethasone is still recommended at this time by pulmonary, 6 mg daily 4. Diabetes mellitus type 2, with hyperglycemia, continue on NovoLog Mix 70/30 100 units twice a day, with food and a scale 5. Type II NJ, secondary to Covid, on metoprolol 25 mg twice a day 6. Obstructive sleep apnea on CPAP device, and O2 supplementation at at bedtime 7. COPD without any current exacerbation, 8. Tobacco dependency for which she quit 3 weeks prior to admission 9. GERD 10. GI prophylaxis on PPI 11. DVT prophylaxis with PETER hose, acute GI bleed, pharmacological invention is contraindicated 12. Leukocytosis, possibly related to dexamethasone, however has leukemoid reaction, and myelocytes or metamyelocytes with manual review, might need oncology, monitor, obtain pro-calcitonin level
[2020-06-07 21:05] LABS: Glucose,Whole Blood 175 mg/dL (75-99)
[2020-06-07] MEDS: PANTOPRAZOLE 40 MG/10 ML VIAL IVP SCH (21:20)
[2020-06-08 01:43] LABS: Glucose,Whole Blood 72 mg/dL (75-99)
[2020-06-08 06:10] LABS: Glucose,Whole Blood 69 mg/dL (75-99)
[2020-06-08 06:39] LABS: Glucose,Whole Blood 77 mg/dL (75-99)
[2020-06-08] MEDS: SUCRALFATE 1 GM TAB PO SCH ×4 (06:43→20:52)
[2020-06-08] MEDS: LACTATED RINGERS 1,000 ML IV SCH ×2 (06:43→17:34)
[2020-06-08] MEDS: CLOTRIMAZOLE/BETAMETH 1-0.05% CREAM 45 GM TUBE TOPICAL SCH ×3 (06:44→20:53)
[2020-06-08] MEDS: INSULIN ASPART (NovoLOG) 100 UNIT/ML VIAL SQ SCH ×4 (06:53→20:52)
[2020-06-08] MEDS: ASCORBIC ACID 500 MG TAB PO SCH ×2 (07:53→20:52)
[2020-06-08] MEDS: SODIUM CHLORIDE 0.9% 1,000 ML IV SCH ×3 (07:53→17:34)
[2020-06-08] MEDS: ZINC SULFATE 220 MG CAP PO SCH (07:53)
[2020-06-08] MEDS: INSULN ASP PRT/INSULIN ASPART 100 UNIT/ML 10 ML VIAL SQ SCH ×2 (09:48→17:42)
[2020-06-08 10:48] LABS: Anisocytosis Moderate; HCT 22.6 % (39.0-53.0); HGB 7.5 gm/dL (13.0-17.5); Hypochromasia Slight; MCH 29.6 pg (25.0-35.0); MCHC 33.3 g/dL (31.0-37.0); MCV 88.8 fL (80.0-100.0); Macrocytosis Slight; Mean Platelet Volume 8.1; Platelet Count 218 k/uL (150-450); Poikilocytosis Moderate; RBC 2.54 m/uL (4.30-5.90); RDW 20.4 % (11.5-15.5); WBC 23.6 k/uL (3.8-10.6)
[2020-06-08] MEDS: PANTOPRAZOLE 40 MG/10 ML VIAL IVP SCH ×2 (11:05→20:52)
[2020-06-08] MEDS: dexAMETHasone 2 MG TAB PO SCH ×3 (11:05→12:05)
[2020-06-08] MEDS: METOPROLOL TARTRATE 25 MG TAB PO SCH ×3 (11:05→17:20)
[2020-06-08] MEDS: SODIUM FERRIC GLUCONAT-SUCROSE 125 MG in SODIUM CHLORIDE 0.9% 100 ML IVPB SCH (11:06)
--- NOTE | 2020-06-08 11:15 | P.CONS ---
History of Present Illness - Reason for Consult Consult date: 06/07/20 Anemia, GI bleed Requesting physician: Mariah Marie - Chief Complaint GI bleed - History of Present Illness 60-year-old male with multiple medical comorbidities including diabetes mellitus and was a was transferred from [facility] for evaluation of possible GI bleed. Patient has recent diagnosis of infection with Covid 19. He was at [facility] where there are reports of burgundy-colored stool. On questioning the patient is unsure of the color of his bowel movements. He denies any nausea or vomiting. No history of peptic ulcer disease. The patient has no prior history of EGD or colonoscopy in the past. Chest x-ray on presentation showed bilateral infiltrates. Laboratory evaluation significant for a hemoglobin of 5.8 with WBC of 33 and platelet count of 74,000 with BUN elevated at 25 and stool testing positive for occult blood. Other laboratory evaluation significant for INR of 1, total bilirubin 0.4, alk phos 260, AST 53 and ALT 83. Currently the patient is denying any abdominal pain. Patient does have Protonix and Carafate listed on outpatient medications. He did report frequent loose bowel movements prior to presentation and had been given antidiarrheal with reports of prior testing for clostridium difficile being negative. Review of Systems REVIEW OF SYSTEMS: CONSTITUTIONAL: Denies any fevers, chills, weight change or fatigue. CARDIOVASCULAR: Denies any chest pain, palpitations high or low blood pressures RESPIRATORY: Denies any shortness of breath, hemoptysis or cough. GENITOURINARY: No dysuria or hematuria. MUSCULOSKELETAL: No weakness reported. SKIN: Denies any new rashes or lesions, jaundice or pallor. PSYCHIATRIC: Denies any depression or anxiety. NEUROLOGY: Denies headache, denies any new focal deficits. EARS/NOSE/THROAT: No recent hearing change, congestion, nasal discharge or sore throat. EYES: No pain in eyes, discharge or change in vision. GASTROINTESTINAL: As per HPI. Past Medical History Past Medical History: Diabetes Mellitus, Sleep Apnea/CPAP/BIPAP Past Surgical History: No Surgical Hx Reported Past Psychological History: No Psychological Hx Reported Smoking Status: Former smoker Past Alcohol Use History: None Reported Past Drug Use History: Marijuana - Past Family History Father History Unknown: Yes Family Medical History: Coronary Artery Disease (CAD) Mother History Unknown: Yes Family Medical History: Coronary Artery Disease (CAD) Additional Family Medical History / Comment(s): 5 brothers healthy, 5 sisters okay, 1 boy and 1 girl, with asthma Medications and Allergies Home Medications Medication Instructions Recorded Confirmed Type Acetaminophen Tab [Tylenol] 650 mg PO Q6H PRN 06/05/20 06/07/20 History Albuterol Sulfate [Proair 1 puff INHALATION RT-Q6H 06/05/20 06/07/20 History Respiclick] Albuterol Sulfate [Proair 1 puff INHALATION RT-Q6H PRN 06/05/20 06/07/20 History Respiclick] Dexamethasone 6 mg PO DAILY@0900 06/05/20 06/07/20 History Insulin NPH/Reg Insulin 70/30 100 unit SQ BID@0900,1700 06/05/20 06/07/20 History [humuLIN 70/30 VIAL] Loperamide HCl [Imodium A-D] 4 mg PO Q2H PRN 06/05/20 06/07/20 History Metoprolol Tartrate [Lopressor] 25 mg PO BID@0900,1700 06/05/20 06/07/20 History Pantoprazole Sodium [Protonix] 40 mg PO BID@0900,1700 06/05/20 06/07/20 History Sucralfate [Carafate] 1 gm PO ACHS 06/05/20 06/07/20 History Clotrimazole/Betameth Cream 1 applic TOPICAL Q12H 06/07/20 06/07/20 History [Lotrisone] Zguard 1 applic TOPICAL Q12H 06/07/20 06/07/20 History Allergies Allergy/AdvReac Type Severity Reaction Status Date / Time No Known Allergies Allergy Verified 06/07/20 09:10 Physical Exam Vitals: Vital Signs Temp Pulse Resp BP Pulse Ox 06/07/20 13:33 97.8 F 86 20 126/74 95 06/07/20 13:07 81 16 113/68 95 06/07/20 12:59 82 17 130/77 06/07/20 11:30 87 16 118/73 06/07/20 11:04 98 F 88 18 06/07/20 11:00 80 16 112/65 06/07/20 10:34 98 F 92 18 112/65 98 06/07/20 10:30 90 17 123/70 06/07/20 10:25 98 F 86 18 123/70 06/07/20 10:00 105 H 18 118/67 06/07/20 09:30 85 18 110/58 97 06/07/20 09:00 87 18 115/87 95 06/07/20 07:47 99.6 F 86 18 123/66 97 Intake and Output 06/06/20 06/07/20 06/07/20 22:59 06:59 14:59 Intake Total 278 Balance 278 Intake: Blood Product 278 Rc Pheresis As-3 Unit 0 [id number] Rc Pheresis As-3 Unit 278 [id number] Other: Weight 104.326 kg On physical examination, patient appears comfortable in no apparent distress. HEAD: Normocephalic, atraumatic. EYES: No scleral icterus. No conjunctival injection. MOUTH: No lesions, tongue midline. NECK: Trachea midline, no gross abnormalities. CHEST: Decreased air entry in all lung blunt. HEART: Regular rate and rhythm. ABDOMEN: Soft, obese and nontender to palpation. Bowel sounds are positive. No organomegaly. No guarding or rigidity. EXTREMITIES: No pedal edema. SKIN: No rashes, no jaundice. NEUROLOGIC: Alert and oriented x3. No focal deficits. Results CBC & Chem 7: 06/08/20 09:57 06/07/20 08:22 Labs: Abnormal Lab Results - Last 24 Hours (Table) 06/07/20 06/07/20 06/07/20 Range/Units 08:15 08:22 08:22 WBC 33.0 H (3.8-10.6) k/uL RBC 2.00 L (4.30-5.90) m/uL Hgb 5.8 L* (13.0-17.5) gm/dL Hct 17.5 L* (39.0-53.0) % RDW 21.2 H (11.5-15.5) % Neutrophils # (Manual) 27.00 H (1.3-7.7) k/uL Monocytes # (Manual) 1.32 H (0-1.0) k/uL Basophils # (Manual) 0.33 H (0-0.2) k/uL Metamyelocytes # (Man) 0.66 H (0) k/uL Myelocytes # (Manual) 0.33 H (0) k/uL Nucleated RBCs 1 H (0-0) /100 WBC APTT 20.1 L (22.0-30.0) sec Sodium (137-145) mmol/L Carbon Dioxide (22-30) mmol/L BUN (9-20) mg/dL Glucose (74-99) mg/dL POC Glucose (mg/dL) (75-99) mg/dL Calcium (8.4-10.2) mg/dL ALT (4-49) U/L Total Protein (6.3-8.2) g/dL Albumin (3.5-5.0) g/dL Urine Glucose (UA) (Negative) Crossmatch See Detail 06/07/20 06/07/20 06/07/20 Range/Units 08:22 09:28 11:24 WBC (3.8-10.6) k/uL RBC (4.30-5.90) m/uL Hgb (13.0-17.5) gm/dL Hct (39.0-53.0) % RDW (11.5-15.5) % Neutrophils # (Manual) (1.3-7.7) k/uL Monocytes # (Manual) (0-1.0) k/uL Basophils # (Manual) (0-0.2) k/uL Metamyelocytes # (Man) (0) k/uL Myelocytes # (Manual) (0) k/uL Nucleated RBCs (0-0) /100 WBC APTT (22.0-30.0) sec Sodium 135 L (137-145) mmol/L Carbon Dioxide 34 H (22-30) mmol/L BUN 25 H (9-20) mg/dL Glucose 117 H (74-99) mg/dL POC Glucose (mg/dL) 71 L (75-99) mg/dL Calcium 8.0 L (8.4-10.2) mg/dL ALT 83 H (4-49) U/L Total Protein 5.0 L (6.3-8.2) g/dL Albumin 2.5 L (3.5-5.0) g/dL Urine Glucose (UA) 1+ H (Negative) Crossmatch Chest x-ray: report reviewed (Bilateral infiltrates on chest x-ray) Assessment and Plan (1) GI hemorrhage Narrative/Plan: 60-year-old male presenting as a transfer from [facility] noted to have Burgundy colored stool. On questioning the patient denies any history of GI bleed in the past, no prior EGD or colonoscopy, he denies any peptic ulcer disease, nausea or vomiting. Patient's hemoglobin was found to drop down to 5.8 on presentation with stool testing positive for occult blood. Unclear etiology, may be secondary to peptic ulcer disease, AVM, diverticular bleed or other etiology. Current Visit: Yes Status: Acute Code(s): K92.2 - GASTROINTESTINAL HEMORRHAGE, UNSPECIFIED SNOMED Code(s): 17036970 (2) Anemia associated with acute blood loss Current Visit: Yes Status: Acute Code(s): D62 - ACUTE POSTHEMORRHAGIC ANEMIA SNOMED Code(s): 181453013 (3) Pneumonia due to COVID-19 virus Current Visit: Yes Status: Acute Code(s): U07.1 - COVID-19; J12.82 - Pneumonia due to coronavirus disease 2018 SNOMED Code(s): 859751377632970557 Plan: Supportive care Continue monitor hemoglobin and hematocrit and transfuse as needed Continue monitor for signs or symptoms of GI bleed Continue Protonix therapy Continue other medical management per primary team Extensive discussion with the patient regarding endoscopic evaluation with EGD and colonoscopy, all the risks, benefits and possible competitions of the procedures is going to the patient at length of his questions answered to his satisfaction Plan for EGD and colonoscopy on 06/09/2020 Thank you for allowing us to participate in the care of the patient
[2020-06-08 11:20] LABS: Glucose,Whole Blood 99 mg/dL (75-99)
[2020-06-08 12:26] LABS: African American GFR (CKD) >90 (>60 ml/min/1.73 sqM); Anion Gap 1 mmol/L; Blood Urea Nitrogen 20 mg/dL (9-20); Calcium 7.7 mg/dL (8.4-10.2); Carbon Dioxide 31 mmol/L (22-30); Chloride 101 mmol/L (98-107); Glucose 64 mg/dL (74-99); Non-African American GFR(CKD) >90 (>60 ml/min/1.73 sqM); Sodium 133 mmol/L (137-145)
[2020-06-08 12:54] LABS: Potassium 5.4 mmol/L (3.5-5.1)
--- NOTE | 2020-06-08 14:01 | P.PN ---
Subjective Progress Note Date: 06/08/20 Principal diagnosis: Acute GI blood loss anemia, recent COVID 19 pneumonia This is a 60-year-old white male patient of Dr. Marie, with recent history of COVID 19 related pneumonia, hospitalized at the [facility] and subsequently discharged to [facility] on the [facility] following his hospitalization. He was on oxygen at the care home at 3 L/m, he was still completing his course of oral Decadron 6 mg daily, the patient was not on any anticoagulants. He was brought into the hospital on 06/07/2020 for evaluation of severe anemia, he is outpatient blood work at the [facility] revealed hemoglobin of 5.7, patient is unsure whether his stools have been red or black, he did report weakness, and he was having difficulty walking at the [facility]. No abdominal discomfort, patient had no prior history of GI bleeding, no prior history of colonoscopies. He is not on any chronic anticoagulation aspirin, or NSAIDs. His medical history includes diabetes mellitus type 2, obstructive sleep apnea on CPAP therapy, he is former smoker, chronic diastolic CHF, previous history of myocardial infarction, secondary polycythemia, muscle weakness, and gait dysfunction. His chest x-ray showed cardiomegaly with bilateral multifocal acute infiltrates, greatest in the left lung. His crit was 19 PCR a retest was negative. His white count was 33, his hemoglobin was 5.8, hematocrit was 17.5, his neutrophils were 27, INR was 1.0, PT was 10.6, sodium was 135, potassium is 4.1, chloride was 99, CO2 34, BUN was 25, creatinine was 0.76, AST was 53, ALT was 83, alkaline phosphatase was 60, urinalysis showed 1+ glucose but no evidence of infection, stool for occult blood was positive. Patient is receiving 2 units of packed red blood cell transfusion in the emergency department, he is also getting IV fluids at 100 ML per hour, he was started on Protonix, there has been no active bleeding thus far, GI consultation was requested and is pending at this time, he continues on his oral dexamethasone 6 mg daily, does not appear to be in any acute respiratory distress. He is in sinus mechanism with a controlled rate, no tachycardia, he is on room air with a pulse ox of 95%, blood pressure is 126/74. On 06/08/2020 patient seen in follow-up on care unit, he sitting up in the to th e bed, calm and comfortable, appears to be in no acute distress, denies any abdominal pain, no nausea or vomiting, he did not have any active bleeding overnight, no worsening dyspnea, he is currently on 4 L of oxygen pulse ox is 98%, no fever or chills. Patient's over 19 test was negative this admission. He was transfused with 2 units of packed red blood cells, today's hemoglobin is 7.5, white cell count is improving, down to 23.6, sodium is 132, potassium is 5.4, chloride is 101, CO2 31, B1 is 20 creatinine 0.57. He is on PPI therapy. Continues on oral Decadron, he is on IV fluids at 120 ML per hour. Lung sounds are diminished at the bases. Objective - Vital Signs Vital signs: Vital Signs Temp 97.5 F L 06/08/20 08:00 Pulse 73 06/08/20 08:00 Resp 20 06/08/20 08:00 BP 130/60 06/08/20 08:00 Pulse Ox 98 06/08/20 08:00 Intake & Output 06/07/20 06/08/20 06/08/20 18:59 06:59 18:59 Intake Total 1161 Output Total 400 600 Balance 761 -600 Weight 104.326 kg 131 kg Intake: Oral 600 Blood Product 561 Rc Pheresis As-3 Unit 283 [id number] Rc Pheresis As-3 Unit 278 [id number] Output: Urine 400 600 Other: # Voids 0 2 # Bowel Movements 1 - Exam GENERAL EXAM: Alert, pleasant, 60-year-old white male, on 4 L of oxygen with a pulse ox of 98%, appears somewhat disheveled, weak, but denies any acute distress, comfortable. HEAD: Normocephalic/atraumatic. EYES: Normal reaction of pupils, equal size. Conjunctiva pink, sclera white. NOSE: Clear with pink turbinates. THROAT: No erythema or exudates. NECK: No masses, no JVD, no thyroid enlargement, no adenopathy. CHEST: No chest wall deformity. Symmetrical expansion. LUNGS: Equal air entry with no crackles, wheeze, rhonchi or dullness. CVS: Regular rate and rhythm, normal S1 and S2, no gallops, no murmurs, no rubs ABDOMEN: Soft, nontender. No hepatosplenomegaly, normal bowel sounds, no guarding or rigidity. EXTREMITIES: No clubbing, no edema, no cyanosis, 2+ pulses and upper and lower extremities. MUSCULOSKELETAL: Muscle strength and tone normal. SPINE: No scoliosis or deformity SKIN: No rashes CENTRAL NERVOUS SYSTEM: Alert and oriented -3. No focal deficits, tone is normal in all 4 extremities. PSYCHIATRIC: Alert and oriented -3. Appropriate affect. Intact judgment and insight. - Labs CBC & Chem 7: 06/08/20 09:57 06/08/20 10:06 Labs: Abnormal Lab Results - Last 24 Hours (Table) 06/07/20 06/07/20 06/07/20 Range/Units 08:15 16:34 16:35 WBC (3.8-10.6) k/uL RBC (4.30-5.90) m/uL Hgb (13.0-17.5) gm/dL Hct (39.0-53.0) % RDW (11.5-15.5) % Neutrophils # (Manual) (1.3-7.7) k/uL Lymphocytes # (Manual) (1.0-4.8) k/uL Nucleated RBCs (0-0) /100 WBC Sodium (137-145) mmol/L Potassium (3.5-5.1) mmol/L Carbon Dioxide (22-30) mmol/L Creatinine (0.66-1.25) mg/dL Glucose (74-99) mg/dL POC Glucose (mg/dL) 61 L 61 L (75-99) mg/dL Calcium (8.4-10.2) mg/dL Crossmatch See Detail 06/07/20 06/07/20 06/07/20 Range/Units 16:51 16:52 17:14 WBC 30.2 H (3.8-10.6) k/uL RBC 2.65 L (4.30-5.90) m/uL Hgb 7.8 L D (13.0-17.5) gm/dL Hct 23.5 L (39.0-53.0) % RDW 19.9 H (11.5-15.5) % Neutrophils # (Manual) 24.70 H (1.3-7.7) k/uL Lymphocytes # (Manual) 4.83 H (1.0-4.8) k/uL Nucleated RBCs 1 H (0-0) /100 WBC Sodium (137-145) mmol/L Potassium (3.5-5.1) mmol/L Carbon Dioxide (22-30) mmol/L Creatinine (0.66-1.25) mg/dL Glucose (74-99) mg/dL POC Glucose (mg/dL) 61 L 74 L (75-99) mg/dL Calcium (8.4-10.2) mg/dL Crossmatch 06/07/20 06/08/20 06/08/20 Range/Units 21:02 01:41 06:08 WBC (3.8-10.6) k/uL RBC (4.30-5.90) m/uL Hgb (13.0-17.5) gm/dL Hct (39.0-53.0) % RDW (11.5-15.5) % Neutrophils # (Manual) (1.3-7.7) k/uL Lymphocytes # (Manual) (1.0-4.8) k/uL Nucleated RBCs (0-0) /100 WBC Sodium (137-145) mmol/L Potassium (3.5-5.1) mmol/L Carbon Dioxide (22-30) mmol/L Creatinine (0.66-1.25) mg/dL Glucose (74-99) mg/dL POC Glucose (mg/dL) 175 H 72 L 69 L (75-99) mg/dL Calcium (8.4-10.2) mg/dL Crossmatch 06/08/20 06/08/20 Range/Units 09:57 10:06 WBC 23.6 H (3.8-10.6) k/uL RBC 2.54 L (4.30-5.90) m/uL Hgb 7.5 L (13.0-17.5) gm/dL Hct 22.6 L (39.0-53.0) % RDW 20.4 H (11.5-15.5) % Neutrophils # (Manual) (1.3-7.7) k/uL Lymphocytes # (Manual) (1.0-4.8) k/uL Nucleated RBCs (0-0) /100 WBC Sodium 133 L (137-145) mmol/L Potassium 5.4 H (3.5-5.1) mmol/L Carbon Dioxide 31 H (22-30) mmol/L Creatinine 0.57 L (0.66-1.25) mg/dL Glucose 64 L (74-99) mg/dL POC Glucose (mg/dL) (75-99) mg/dL Calcium 7.7 L (8.4-10.2) mg/dL Crossmatch Assessment and Plan Plan: Assessment: #1. Acute GI blood loss anemia, patient presented with a hemoglobin of 5.8, requiring transfusion with 2 units of packed red blood cells. Today's hemoglobin is 7.5, patient is scheduled for EGD and colonoscopy tomorrow #2. Recent history of COVID 19 pneumonia, patient was undergone rehab at the [facility] on the [place], was still completing his Decadron course. Was not on any anticoagulation at the [facility] #3. Leukocytosis, rule out possibility of pneumonia, although patient denies any significant pulmonary symptoms #4. Chronic hypoxic respiratory failure related to recent history of COVID19 pneumonia #5. Former smoker #6. Diabetes mellitus type 2 #7. History of sleep apnea on CPAP #8. Previous history of myocardial infarction #9. Previous history of chronic CHF, with a diastolic dysfunction #10. General medical debility, gait instability, recent falls Plan: No active bleeding overnight, today's hemoglobin is 7.5, patient denies any worsening dyspnea, wean FiO2 to maintain O2 sat at 92-94%, continue Decadron, procalcitonin level has been sent and pending, no fever or chills. EGD has been scheduled for tomorrow. I performed a history & physical examination of the patient and discussed their management with my nurse practitioner, Lorie Talamantes. I reviewed the nurse practitioner's note and agree with the documented findings and plan of care. Lung sounds are positive for diminished breath sounds. The findings and the impression was discussed with the patient. I attest to the documentation by the nurse practitioner. Time with Patient: Less than 30
--- NOTE | 2020-06-08 15:30 | P.PN ---
Subjective Progress Note Date: 06/08/20 Principal diagnosis: Anemia, GI bleed Patient was seen and examined in his room. He denies any further episodes of GI bleed. He states he has no abdominal pain, nausea or vomiting. He was scheduled for EGD today, however will be rescheduled for tomorrow with colonoscopy. No acute changes through the night. Hemoglobin stable at 7.6. Objective - Vital Signs Vital signs: Vital Signs Temp 97.5 F L 06/08/20 08:00 Pulse 73 06/08/20 08:00 Resp 20 06/08/20 08:00 BP 130/60 06/08/20 08:00 Pulse Ox 98 06/08/20 08:00 Intake & Output 06/07/20 06/08/20 06/08/20 18:59 06:59 18:59 Intake Total 1161 Output Total 400 600 Balance 761 -600 Weight 104.326 kg 131 kg Intake: Oral 600 Blood Product 561 Rc Pheresis As-3 Unit 283 [id number] Rc Pheresis As-3 Unit 278 [id number] Output: Urine 400 600 Other: # Voids 0 2 # Bowel Movements 1 - Exam General appearance: The patient is alert, oriented, in no acute distress. HET: Head is normocephalic and atraumatic. Conjunctiva pink. Sclera anicteric. Neck: Supple without lymphadenopathy. Abdomen: Soft, nontender, nondistended with bowel sounds. No guarding or rigidity. Extremities: Normal skin color and turgor. No pedal edema Neurological: No focal deficits. Alert and oriented 3. - Labs CBC & Chem 7: 06/08/20 09:57 06/08/20 10:06 Labs: Abnormal Lab Results - Last 24 Hours (Table) 06/07/20 06/07/20 06/07/20 Range/Units 08:15 11:24 16:34 WBC (3.8-10.6) k/uL RBC (4.30-5.90) m/uL Hgb (13.0-17.5) gm/dL Hct (39.0-53.0) % RDW (11.5-15.5) % Neutrophils # (Manual) (1.3-7.7) k/uL Lymphocytes # (Manual) (1.0-4.8) k/uL Nucleated RBCs (0-0) /100 WBC POC Glucose (mg/dL) 71 L 61 L (75-99) mg/dL Crossmatch See Detail 06/07/20 06/07/20 06/07/20 Range/Units 16:35 16:51 16:52 WBC 30.2 H (3.8-10.6) k/uL RBC 2.65 L (4.30-5.90) m/uL Hgb 7.8 L D (13.0-17.5) gm/dL Hct 23.5 L (39.0-53.0) % RDW 19.9 H (11.5-15.5) % Neutrophils # (Manual) 24.70 H (1.3-7.7) k/uL Lymphocytes # (Manual) 4.83 H (1.0-4.8) k/uL Nucleated RBCs 1 H (0-0) /100 WBC POC Glucose (mg/dL) 61 L 61 L (75-99) mg/dL Crossmatch 06/07/20 06/07/20 06/08/20 Range/Units 17:14 21:02 01:41 WBC (3.8-10.6) k/uL RBC (4.30-5.90) m/uL Hgb (13.0-17.5) gm/dL Hct (39.0-53.0) % RDW (11.5-15.5) % Neutrophils # (Manual) (1.3-7.7) k/uL Lymphocytes # (Manual) (1.0-4.8) k/uL Nucleated RBCs (0-0) /100 WBC POC Glucose (mg/dL) 74 L 175 H 72 L (75-99) mg/dL Crossmatch 06/08/20 Range/Units 06:08 WBC (3.8-10.6) k/uL RBC (4.30-5.90) m/uL Hgb (13.0-17.5) gm/dL Hct (39.0-53.0) % RDW (11.5-15.5) % Neutrophils # (Manual) (1.3-7.7) k/uL Lymphocytes # (Manual) (1.0-4.8) k/uL Nucleated RBCs (0-0) /100 WBC POC Glucose (mg/dL) 69 L (75-99) mg/dL Crossmatch Assessment and Plan (1) GI hemorrhage Narrative/Plan: A 60-year-old male presenting transfer from [facility] for having burgundy colored stool. On questioning the patient denies any history of GI bleed in the past, no prior EGD or colonoscopy. He denies any peptic ulcer disease, nausea or vomiting. Patient's hemoglobin on diaz was 5.8 with positive occult stool. Unclear etiology, may be secondary to peptic ulcer disease, AVM, diverticular bleed or other etiology. Patient scheduled for EGD and colonoscopy Current Visit: Yes Status: Acute Code(s): K92.2 - GASTROINTESTINAL HEMORRHAGE, UNSPECIFIED SNOMED Code(s): 80524500 (2) Anemia associated with acute blood loss Current Visit: Yes Status: Acute Code(s): D62 - ACUTE POSTHEMORRHAGIC ANEMIA SNOMED Code(s): 793662812 (3) Pneumonia due to COVID-19 virus Current Visit: Yes Status: Acute Code(s): U07.1 - COVID-19; J12.82 - Pneumonia due to coronavirus disease 2018 SNOMED Code(s): 614021815990071261 Plan: 1. Supportive care 2. Daily CBC transfuse for hemoglobin less than 7 3. Continue to monitor for signs and symptoms of GI bleed 4. Continue Protonix therapy 5. Patient may have clear liquid diet, nothing by mouth after midnight 6. Bowel prep this evening 7. Patient scheduled for EGD and colonoscopy tomorrow Thank you for this consultation we will continue to follow Dr Stanley I agree with the dictator's note, documented as a scribe by Kindra Olivares.
[2020-06-08 16:55] LABS: Glucose,Whole Blood 286 mg/dL (75-99)
[2020-06-08] MEDS ORDERED: PEG 3350-NA SULF,BICARB,CL/KCL 4,000 ML BOTTLE PO ONE (17:00)
[2020-06-08 20:46] LABS: Glucose,Whole Blood 325 mg/dL (75-99)
[2020-06-08] MEDS ORDERED: LACTATED RINGERS 1,000 ML IV SCH (23:34)
[2020-06-09 01:58] LABS: % Iron Saturation 27.02 (15.00-50.00)
[2020-06-09] MEDS: SODIUM CHLORIDE 0.9% 1,000 ML IV SCH ×3 (04:07→20:31)
[2020-06-09] MEDS: INSULIN ASPART (NovoLOG) 100 UNIT/ML VIAL SQ SCH ×4 (06:16→20:29)
[2020-06-09] MEDS: SUCRALFATE 1 GM TAB PO SCH ×4 (06:16→20:29)
[2020-06-09 06:17] LABS: Glucose,Whole Blood 88 mg/dL (75-99)
--- NOTE | 2020-06-09 07:41 | P.PN ---
Subjective Progress Note Date: 06/08/20 HISTORY OF PRESENT ILLNESS This is a 60-year-old gentleman with known history of diabetes mellitus type 2, who was transferred from [facility] in [facility] secondary to burgundy stools. He also has elevated troponin vital pneumonia hypoxemia rest or failure on BiPAP, bacteriuria without pyuria, acute renal insufficiency, elevated transaminitis, and his abdomen mild lysis. He comes in from [facility], for which he presented on 05/28/2020 for a 2 day history of shortness of breath. Was diagnosed to have Covid infection at that time. And admitted to ICU at that time and also had arm blood loss anemia, for which she was seen by gastroenterology.. He was discharged to [facility] in [facility] on 06/03/2020 for short-term rehabilitation. We did stat labs and hemoglobin was 5.9, he was immediately transferred to the emergency room for evaluation. He was recently diagnosed to have covid infection s/p convalescent plasma, he was not a candidate for 7 days of ear that time secondary to elevation of transaminase. Received low-dose heparin Lovenox 40 mg daily, discharged with dexamethasone to complete 10 days. on dexamethasonne, hx of COPD, quit tob 3-4 wks ago Imaging studies are not [facility], shows type II AK with demand ischemia, from sepsis and rhabdo, EF 55%, with mild apical and septal hypokinesia. She also was tested for C. diff which was negative, has always azotemia most likely secondary to hemoconcentration, he was discharged facility with Carafate before meals and at bedtime, loperamide, dexamethasone 6 mg daily, metoprolol, Protonix 40 twice a day. Heart cath was 2005, EF 60%, normal coronaries. Hemoglobin was 10.4 on discharge from the other facility, with platelets of 253. WBC count of 13.51 In the emergency room, we have seen he is agitated, that he voided in his [place], and he's been waiting for 20 minutes to have somebody cleanup he is blanket. Nurses are assisting him currently. He was sinus rhythm, EKG shows LVH, heart rate 88, blood pressure is stable, 126/74, heart rate 77, T-max 97.6, O2 sats 97%, on room air, wbc 30k hemoglobin 5.9 occult stools positive, Covid negative patient would be seen consultation by pulmonary, and gas and nephrology. Patient might have steroid induced gastritis, dexamethasone is on hold, continue PPIs 40 twice a day Protonix, transfuse 2 units of packed red blood cell for initial hemoglobin of 5.9. inr1 0.0 06/08: Patient is adamant that he wants to eat a hamburger today. He is scheduled for EGD and colonoscopy on with GI. Patient has been difficult with nursing refusing to take medications and etc. Dr. Velez had long discussion with the patient regarding compliance with treatment and being appropriate to the staff. She is afebrile, heart rate 73, blood pressure 130/60, pulse ox 90% on 4 L nasal cannula. WBC 3.6, hemoglobin 7.5, platelet count 218. Sodium 133, potassium 4.4, chloride 101, CO2 31, BUN 20 creatinine 0.57. Patient will watch sugar reading of 64 and his insulin 7030 will be decreased to 40 units twice a day starting this evening. Iron 77, TIBC 285, iron saturation 27.02. Calcitonin 0.06. REVIEW OF SYSTEMS Constitutional: No fever, no chills, no night sweats. No weight change. No weakness, fatigue or lethargy. No daytime sleepiness. EENT: No headache. No blurred vision or double vision, no loss of vision. No loss of Hearing, no ringing in the ears, no dizziness. No nasal drainage or congestion. No epistaxis. No sore throat. Lungs: No shortness of breath, cough, no sputum production. No wheezing. Cardiovascular: No chest pain, no lower extremity edema. No palpitations. No paroxysmal nocturnal dyspnea. No orthopnea. No lightheadedness or dizziness. No syncopal episodes. Abdominal: No abdominal pain. No nausea, vomiting. No diarrhea. No constipation. No bloody or tarry stools.. No loss of appetite. Genitourinary: No dysuria, increased frequency, urgency. No urinary retention. Musculoskeletal: No myalgias. No muscle weakness, no gait dysfunction, no frequent falls. No back pain. No neck pain. Integumentary: No wounds, no lesions. No rash or pruritus. No unusual bruising. No change in hair or nails. Neurologic: No aphasia. No facial droop. No change in mentation. No head injury. No headache. No paralysis. No paresthesia. Psychiatric: No depression. No anxiety. No mood swings. Endocrine: No abnormal blood sugars. No weight change. No excessive sweating or thirst. No cold intolerance. PHYSICAL EXAMINATION Gen: This is a 60-year-old male patient sitting on the edge of the bed and appears to be comfortable and in no acute distress. HEENT: Head is atraumatic, normocephalic. Pupils equal, round. Sclerae is anicteric. NECK: Supple. No JVD. No lymphadenopathy. No thyromegaly. LUNGS: Clear to auscultation. No wheezes or rhonchi. No intercostal retractions. HEART: Regular rate and rhythm. No murmur. ABDOMEN: Soft. Bowel sounds are present. No masses. No tenderness. No epigastric tenderness. EXTREMITIES: No pedal edema. No calf tenderness. NEUROLOGICAL: Patient is awake, alert and oriented x3. Cranial nerves 2 through 12 are grossly intact. ASSESSMENT AND PLAN 1. Acute GI bleed, suspect upper, steroid gastritis most likely secondary to dexamethasone, currently on Protonix 40 mg twice a day, and Carafate 1 g 4 times a day. Consult with gastrology, status post 2 units of packed red blood cell blood transfusion. Patient is scheduled for EGD and colonoscopy on . 2. Acute blood loss severe anemia, t requiring 2 units of packed red blood cell transfusion today. 3. Covid diagnosed 05/27/2020, status post convalescent Serum and hypoxemia dexamethasone is still recommended at this time by pulmonary, 6 mg daily 4. Diabetes mellitus type 2, with hyperglycemia and hypoglycemia, continue on NovoLog Mix 70/30 decreased to 40 units twice a day, and a scale 5. Type II AK, secondary to Covid, on metoprolol 25 mg twice a day 6. Obstructive sleep apnea on CPAP device, and O2 supplementation at at bedtime 7. COPD without any current exacerbation, 8. Tobacco dependency for which she quit 3 weeks prior to admission 9. GERD 10. GI prophylaxis on PPI 11. DVT prophylaxis with PETER hose, acute GI bleed, pharmacological invention is contraindicated 12. Leukocytosis, possibly related to dexamethasone, however has leukemoid reaction, and myelocytes or metamyelocytes with manual review, might need oncology, monitor, obtain pro-calcitonin level DISCHARGE PLAN Return to [facility]. Impression and plan of care have been directed as dictated by the signing physician. Kristen An nurse practitioner acting as scribe for signing physician. Objective - Vital Signs Vital signs: Vital Signs Temp 97.5 F L 06/08/20 08:00 Pulse 73 06/08/20 08:00 Resp 20 06/08/20 08:00 BP 130/60 06/08/20 08:00 Pulse Ox 98 06/08/20 08:00 Intake & Output 06/07/20 06/08/20 06/08/20 18:59 06:59 18:59 Intake Total 1161 Output Total 400 600 Balance 761 -600 Weight 104.326 kg 131 kg Intake: Oral 600 Blood Product 561 Rc Pheresis As-3 Unit 283 [id number] Rc Pheresis As-3 Unit 278 [id number] Output: Urine 400 600 Other: # Voids 0 2 # Bowel Movements 1 - Labs CBC & Chem 7: 06/08/20 09:57 06/08/20 10:06 Labs: Abnormal Lab Results - Last 24 Hours (Table) 06/07/20 06/07/20 06/07/20 Range/Units 08:15 11:24 16:34 WBC (3.8-10.6) k/uL RBC (4.30-5.90) m/uL Hgb (13.0-17.5) gm/dL Hct (39.0-53.0) % RDW (11.5-15.5) % Neutrophils # (Manual) (1.3-7.7) k/uL Lymphocytes # (Manual) (1.0-4.8) k/uL Nucleated RBCs (0-0) /100 WBC POC Glucose (mg/dL) 71 L 61 L (75-99) mg/dL Crossmatch See Detail 06/07/20 06/07/20 06/07/20 Range/Units 16:35 16:51 16:52 WBC 30.2 H (3.8-10.6) k/uL RBC 2.65 L (4.30-5.90) m/uL Hgb 7.8 L D (13.0-17.5) gm/dL Hct 23.5 L (39.0-53.0) % RDW 19.9 H (11.5-15.5) % Neutrophils # (Manual) 24.70 H (1.3-7.7) k/uL Lymphocytes # (Manual) 4.83 H (1.0-4.8) k/uL Nucleated RBCs 1 H (0-0) /100 WBC POC Glucose (mg/dL) 61 L 61 L (75-99) mg/dL Crossmatch 06/07/20 06/07/20 06/08/20 Range/Units 17:14 21:02 01:41 WBC (3.8-10.6) k/uL RBC (4.30-5.90) m/uL Hgb (13.0-17.5) gm/dL Hct (39.0-53.0) % RDW (11.5-15.5) % Neutrophils # (Manual) (1.3-7.7) k/uL Lymphocytes # (Manual) (1.0-4.8) k/uL Nucleated RBCs (0-0) /100 WBC POC Glucose (mg/dL) 74 L 175 H 72 L (75-99) mg/dL Crossmatch 06/08/20 Range/Units 06:08 WBC (3.8-10.6) k/uL RBC (4.30-5.90) m/uL Hgb (13.0-17.5) gm/dL Hct (39.0-53.0) % RDW (11.5-15.5) % Neutrophils # (Manual) (1.3-7.7) k/uL Lymphocytes # (Manual) (1.0-4.8) k/uL Nucleated RBCs (0-0) /100 WBC POC Glucose (mg/dL) 69 L (75-99) mg/dL Crossmatch
[2020-06-09] MEDS: PANTOPRAZOLE 40 MG/10 ML VIAL IVP SCH ×2 (08:37→20:29)
[2020-06-09] MEDS: METOPROLOL TARTRATE 25 MG TAB PO SCH ×3 (08:37→17:31)
[2020-06-09] MEDS: SODIUM FERRIC GLUCONAT-SUCROSE 125 MG in SODIUM CHLORIDE 0.9% 100 ML IVPB SCH (08:37)
[2020-06-09] MEDS ORDERED: INSULN ASP PRT/INSULIN ASPART 100 UNIT/ML 10 ML VIAL SQ SCH (09:00)
[2020-06-09 09:41] VITALS: RESP 18
[2020-06-09] MEDS ORDERED: PROPOFOL 10 MG/ML 20 ML VIAL IV ONE (09:41)
[2020-06-09] MEDS ORDERED: IV FLUID CONTINUATION 1,000 ML IV ONE ×2 (09:43)
--- NOTE | 2020-06-09 10:03 | P.PCN ---
Date of Procedure: 06/09/20 Description of Procedure: BRIEF HISTORY: 60-year-old male with multiple medical comorbidities including diabetes mellitus and was a was transferred from [facility] for evaluation of possible GI bleed. Patient has recent diagnosis of infection with Covid 19. He was at [facility] where there are reports of burgundy-colored stool. On questioning the patient is unsure of the color of his bowel movements. He denies any nausea or vomiting. No history of peptic ulcer disease. The patient has no prior history of EGD or colonoscopy in the past. Chest x-ray on presentation showed bilateral infiltrates. Laboratory evaluation significant for a hemoglobin of 5.8 with WBC of 33 and platelet count of 74,000 with BUN elevated at 25 and stool testing positive for occult blood. Other laboratory evaluation significant for INR of 1, total bilirubin 0.4, alk phos 260, AST 53 and ALT 83. Currently the patient is denying any abdominal pain. Patient does have Protonix and Carafate listed on outpatient medications. He did report frequent loose bowel movements prior to presentation and had been given antidiarrheal with reports of prior testing for clostridium difficile being negative. PROCEDURE PERFORMED: Esophagogastroduodenoscopy with biopsy. PREOPERATIVE DIAGNOSIS: GI bleed, anemia. ESTIMATED BLOOD LOSS: Minimal. IV sedation per anesthesia. PROCEDURE: After informed consent was obtained, the patient was brought into the endoscopy unit. IV sedation was administered by Anesthesia under continuous monitoring. Initially the Olympus GIF-190 video endoscope was inserted into the mouth. Esophagus intubated without any difficulty. It was gradually advanced into the stomach and duodenum and carefully examined. The bulb and the second part of the duodenum was consistent with some erythema and nodularity suggestive of moderate duodenitis with biopsies taken. The scope at this time was withdrawn to the stomach, adequately insufflated with air, and upon careful examination, mucosa of the antrum, body, cardia and the fundus appeared normal, with biopsies taken of the antrum and body. The scope was then withdrawn into the esophagus. The GE junction was located at 39 cm from the incisors, with LA grade B esophagitis noted in the distal esophagus. The esophagus appeared normal. There were no erosions or ulcerations seen and the patient tolerated the procedure well. IMPRESSION: 1. Moderate duodenitis. 2. LA grade B esophagitis. 3. Biopsies of the duodenum and antrum body. RECOMMENDATIONS: The findings of this examination were discussed with the patient. Jeroday to resume diet. Continue.
[2020-06-09] MEDS: CLOTRIMAZOLE/BETAMETH 1-0.05% CREAM 45 GM TUBE TOPICAL SCH ×2 (11:06→20:31)
[2020-06-09] MEDS: CHOLECALCIFEROL 25 MCG (1000 IU) TABLET PO SCH (11:34)
[2020-06-09] MEDS: dexAMETHasone 2 MG TAB PO SCH (11:35)
[2020-06-09] MEDS: ZINC SULFATE 220 MG CAP PO SCH (11:36)
[2020-06-09] MEDS: ASCORBIC ACID 500 MG TAB PO SCH ×2 (11:36→20:29)
[2020-06-09] MEDS: INSULN ASP PRT/INSULIN ASPART 100 UNIT/ML 10 ML VIAL SQ SCH ×2 (11:37→17:43)
[2020-06-09 12:13] LABS: Glucose,Whole Blood 131 mg/dL (75-99)
--- NOTE | 2020-06-09 13:32 | P.PN ---
Subjective Progress Note Date: 06/09/20 HISTORY OF PRESENT ILLNESS This is a 60-year-old gentleman with known history of diabetes mellitus type 2, who was transferred from [facility] in [facility] secondary to burgundy stools. He also has elevated troponin vital pneumonia hypoxemia rest or failure on BiPAP, bacteriuria without pyuria, acute renal insufficiency, elevated transaminitis, and his abdomen mild lysis. He comes in from [facility], for which he presented on 05/28/2020 for a 2 day history of shortness of breath. Was diagnosed to have Covid infection at that time. And admitted to ICU at that time and also had arm blood loss anemia, for which she was seen by gastroenterology.. He was discharged to [facility] in [facility] on 06/03/2020 for short-term rehabilitation. We did stat labs and hemoglobin was 5.9, he was immediately transferred to the emergency room for evaluation. He was recently diagnosed to have covid infection s/p convalescent plasma, he was not a candidate for 7 days of ear that time secondary to elevation of transaminase. Received low-dose heparin Lovenox 40 mg daily, discharged with dexamethasone to complete 10 days. on dexamethasonne, hx of COPD, quit tob 3-4 wks ago Imaging studies are not [facility], shows type II OH with demand ischemia, from sepsis and rhabdo, EF 55%, with mild apical and septal hypokinesia. She also was tested for C. diff which was negative, has always azotemia most likely secondary to hemoconcentration, he was discharged facility with Carafate before meals and at bedtime, loperamide, dexamethasone 6 mg daily, metoprolol, Protonix 40 twice a day. Heart cath was 2005, EF 60%, normal coronaries. Hemoglobin was 10.4 on discharge from the other facility, with platelets of 253. WBC count of 13.51 In the emergency room, we have seen he is agitated, that he voided in his [place], and he's been waiting for 20 minutes to have somebody cleanup he is blanket. Nurses are assisting him currently. He was sinus rhythm, EKG shows LVH, heart rate 88, blood pressure is stable, 126/74, heart rate 77, T-max 97.6, O2 sats 97%, on room air, wbc 30k hemoglobin 5.9 occult stools positive, Covid negative patient would be seen consultation by pulmonary, and gas and nephrology. Patient might have steroid induced gastritis, dexamethasone is on hold, continue PPIs 40 twice a day Protonix, transfuse 2 units of packed red blood cell for initial hemoglobin of 5.9. inr1 0.0 06/08: Patient is adamant that he wants to eat a hamburger today. He is scheduled for EGD and colonoscopy on with GI. Patient has been difficult with nursing refusing to take medications and etc. Dr. Velez had long discussion with the patient regarding compliance with treatment and being appropriate to the staff. She is afebrile, heart rate 73, blood pressure 130/60, pulse ox 90% on 4 L nasal cannula. WBC 3.6, hemoglobin 7.5, platelet count 218. Sodium 133, potassium 4.4, chloride 101, CO2 31, BUN 20 creatinine 0.57. Patient will watch sugar reading of 64 and his insulin 7030 will be decreased to 40 units twice a day starting this evening. Iron 77, TIBC 285, iron saturation 27.02. ProCalcitonin 0.06. 06/09: Patient underwent EGD today as he did not complete the prep for the colonoscopy yesterday. Patient had refused to complete the prep and is now stating he does not want to have a colonoscopy. Patient underwent EGD which revealed moderate duodenitis, L a grade B esophagitis. Biopsies of the duodenum and antrum body were obtained. Patient was cleared to resume consistent carb diet. Patient is to continue Protonix twice daily and Carafate before meals and at bedtime. Patient may follow-up with GI in the outpatient setting for possible colonoscopy as an outpatient. Patient has been afebrile, blood pres sure 70, blood pressure 124/61, pulse ox 97% on 3 L nasal cannula. A repeat blood work will be ordered for the morning. If hemoglobin is stable, patient will be discharged back to [facility] tomorrow. REVIEW OF SYSTEMS Constitutional: No fever, no chills, no night sweats. No weight change. No weakness, fatigue or lethargy. No daytime sleepiness. EENT: No headache. No blurred vision or double vision, no loss of vision. No loss of Hearing, no ringing in the ears, no dizziness. No nasal drainage or congestion. No epistaxis. No sore throat. Lungs: No shortness of breath, cough, no sputum production. No wheezing. Cardiovascular: No chest pain, no lower extremity edema. No palpitations. No paroxysmal nocturnal dyspnea. No orthopnea. No lightheadedness or dizziness. No syncopal episodes. Abdominal: No abdominal pain. No nausea, vomiting. No diarrhea. No constipation. No bloody or tarry stools. No loss of appetite. Genitourinary: No dysuria, increased frequency, urgency. No urinary retention. Musculoskeletal: No myalgias. No muscle weakness, no gait dysfunction, no frequent falls. No back pain. No neck pain. Integumentary: No wounds, no lesions. No rash or pruritus. No unusual bruising. No change in hair or nails. Neurologic: No aphasia. No facial droop. No change in mentation. No head injury. No headache. No paralysis. No paresthesia. Psychiatric: No depression. No anxiety. No mood swings. Endocrine: Reports abnormal blood sugars. No weight change. No excessive sweating or thirst. No cold intolerance. PHYSICAL EXAMINATION Gen: This is a 60-year-old male patient seen on his stretcher and appears to be comfortable and in no acute distress. HEENT: Head is atraumatic, normocephalic. Pupils equal, round. Sclerae is anicteric. NECK: Supple. No JVD. No lymphadenopathy. No thyromegaly. LUNGS: Clear to auscultation. No wheezes or rhonchi. No intercostal retractions. HEART: Regular rate and rhythm. No murmur. ABDOMEN: Soft. Bowel sounds are present. No masses. No tenderness. No epigastric tenderness. EXTREMITIES: No pedal edema. No calf tenderness. NEUROLOGICAL: Patient is awake, alert and oriented x3. Cranial nerves 2 through 12 are grossly intact. ASSESSMENT AND PLAN 1. Acute GI bleed, suspect upper, steroid gastritis most likely secondary to dexamethasone, currently on Protonix 40 mg twice a day, and Carafate 1 g 4 times a day. Consult with gastrology, status post 2 units of packed red blood cell blood transfusion. Patient status post EGD as above. No plan at this time for colonoscopy. Recheck blood work in the morning and probable discharge tomorrow. 2. Acute blood loss severe anemia, status post 2 units of packed red blood cell transfusion. 3. Covid diagnosed 05/27/2020, status post convalescent Serum and hypoxemia dexamethasone is still recommended at this time by pulmonary, 6 mg daily 4. Diabetes mellitus type 2, with hyperglycemia and hypoglycemia, continue on NovoLog Mix 70/30 decreased to 40 units twice a day, and a scale 5. History of on Saturday Type II OH, secondary to Covid, on metoprolol 25 mg twice a day 6. Obstructive sleep apnea on CPAP device, and O2 supplementation at at bedtime 7. COPD without any current exacerbation, 8. Tobacco dependency for which she quit 3 weeks prior to admission 9. GERD 10. GI prophylaxis on PPI 11. DVT prophylaxis with PETER hose, acute GI bleed, pharmacological invention is contraindicated 12. Leukocytosis, possibly related to dexamethasone, however has leukemoid re action, and myelocytes or metamyelocytes with manual review, might need oncology, monitor, obtain pro-calcitonin level DISCHARGE PLAN Return to [facility]. Impression and plan of care have been directed as dictated by the signing physician. Kristen An nurse practitioner acting as scribe for signing physician. Objective - Vital Signs Vital signs: Vital Signs Temp 98.3 F 06/09/20 00:00 Pulse 70 06/09/20 04:00 Resp 17 06/09/20 04:00 BP 123/69 06/09/20 04:00 Pulse Ox 100 06/09/20 04:00 Intake & Output 06/08/20 06/09/20 06/09/20 18:59 06:59 18:59 Intake Total 2375 Output Total 600 550 Balance 1775 -550 Weight 139 kg Intake: Oral 2375 Output: Urine 600 550 Other: Voiding Method Bedside Commode Urinal # Voids 1 - Labs CBC & Chem 7: 06/08/20 09:57 06/08/20 10:06 Labs: Abnormal Lab Results - Last 24 Hours (Table) 06/08/20 06/08/20 06/08/20 Range/Units 09:57 10:06 16:54 WBC 23.6 H (3.8-10.6) k/uL RBC 2.54 L (4.30-5.90) m/uL Hgb 7.5 L (13.0-17.5) gm/dL Hct 22.6 L (39.0-53.0) % RDW 20.4 H (11.5-15.5) % Sodium 133 L (137-145) mmol/L Potassium 5.4 H (3.5-5.1) mmol/L Carbon Dioxide 31 H (22-30) mmol/L Creatinine 0.57 L (0.66-1.25) mg/dL Glucose 64 L (74-99) mg/dL POC Glucose (mg/dL) 286 H (75-99) mg/dL Calcium 7.7 L (8.4-10.2) mg/dL 06/08/20 Range/Units 20:41 WBC (3.8-10.6) k/uL RBC (4.30-5.90) m/uL Hgb (13.0-17.5) gm/dL Hct (39.0-53.0) % RDW (11.5-15.5) % Sodium (137-145) mmol/L Potassium (3.5-5.1) mmol/L Carbon Dioxide (22-30) mmol/L Creatinine (0.66-1.25) mg/dL Glucose (74-99) mg/dL POC Glucose (mg/dL) 325 H (75-99) mg/dL Calcium (8.4-10.2) mg/dL
--- NOTE | 2020-06-09 15:43 | P.PN ---
Subjective Progress Note Date: 06/09/20 Principal diagnosis: Acute GI blood loss anemia, recent COVID 19 pneumonia This is a 60-year-old white male patient of Dr. Marie, with recent history of COVID 19 related pneumonia, hospitalized at the [facility] and subsequently discharged to [facility] on the [facility] following his hospitalization. He was on oxygen at the intermediate at 3 L/m, he was still completing his course of oral Decadron 6 mg daily, the patient was not on any anticoagulants. He was brought into the hospital on 06/07/2020 for evaluation of severe anemia, he is outpatient blood work at the [facility] revealed hemoglobin of 5.7, patient is unsure whether his stools have been red or black, he did report weakness, and he was having difficulty walking at the [facility]. No abdominal discomfort, patient had no prior history of GI bleeding, no prior history of colonoscopies. He is not on any chronic anticoagulation aspirin, or NSAIDs. His medical history includes diabetes mellitus type 2, obstructive sleep apnea on CPAP therapy, he is former smoker, chronic diastolic CHF, previous history of myocardial infarction, secondary polycythemia, muscle weakness, and gait dysfunction. His chest x-ray showed cardiomegaly with bilateral multifocal acute infiltrates, greatest in the left lung. His crit was 19 PCR a retest was negative. His white count was 33, his hemoglobin was 5.8, hematocrit was 17.5, his neutrophils were 27, INR was 1.0, PT was 10.6, sodium was 135, potassium is 4.1, chloride was 99, CO2 34, BUN was 25, creatinine was 0.76, AST was 53, ALT was 83, alkaline phosphatase was 60, urinalysis showed 1+ glucose but no evidence of infection, stool for occult blood was positive. Patient is receiving 2 units of packed red blood cell transfusion in the emergency department, he is also getting IV fluids at 100 ML per hour, he was started on Protonix, there has been no active bleeding thus far, GI consultation was requested and is pending at this time, he continues on his oral dexamethasone 6 mg daily, does not appear to be in any acute respiratory distress. He is in sinus mechanism with a controlled rate, no tachycardia, he is on room air with a pulse ox of 95%, blood pressure is 126/74. On 06/08/2020 patient seen in follow-up on care unit, he sitting up in the to th e bed, calm and comfortable, appears to be in no acute distress, denies any abdominal pain, no nausea or vomiting, he did not have any active bleeding overnight, no worsening dyspnea, he is currently on 4 L of oxygen pulse ox is 98%, no fever or chills. Patient's over 19 test was negative this admission. He was transfused with 2 units of packed red blood cells, today's hemoglobin is 7.5, white cell count is improving, down to 23.6, sodium is 132, potassium is 5.4, chloride is 101, CO2 31, B1 is 20 creatinine 0.57. He is on PPI therapy. Continues on oral Decadron, he is on IV fluids at 120 ML per hour. Lung sounds are diminished at the bases. On 06/09/2020 patient seen in follow-up on [facility] care unit, he is resting comfortably in bed, breathing comfortably, patient has had no further episodes of bleeding, no black tarry stools, no hematemesis, no abdominal pain, patient is tolerating oral diet, he has been upgraded to a heart healthy consistent carb diet, vital signs have been stable, he is on 3 L of oxygen his pulse ox is 94%, his been afebrile, no complaints of chest pain no shortness of breath, no tachycardia, no hemoglobin done today. EGD and colonoscopy showed esophagitis, moderate duodenitis, biopsies of the duodenum and antrum and body were taken. Objective - Vital Signs Vital signs: Vital Signs Temp 97.6 F 06/09/20 08:00 Pulse 73 06/09/20 12:00 Resp 18 06/09/20 12:00 BP 110/64 06/09/20 12:00 Pulse Ox 94 L 06/09/20 15:17 Intake & Output 06/08/20 06/09/20 06/09/20 18:59 06:59 18:59 Intake Total 2375 454 Output Total 600 550 Balance 1775 -550 454 Weight 139 kg Intake: IV 10 Oral 2375 444 Output: Urine 600 550 Other: Voiding Method Bedside Commode Urinal # Voids 2 - Exam GENERAL EXAM: Alert, pleasant, 60-year-old white male, on 3 L of oxygen with a pulse ox of 94%, appears somewhat disheveled, weak, but denies any acute distress, comfortable. HEAD: Normocephalic/atraumatic. EYES: Normal reaction of pupils, equal size. Conjunctiva pink, sclera white. NOSE: Clear with pink turbinates. THROAT: No erythema or exudates. NECK: No masses, no JVD, no thyroid enlargement, no adenopathy. CHEST: No chest wall deformity. Symmetrical expansion. LUNGS: Equal air entry with no crackles, wheeze, rhonchi or dullness. CVS: Regular rate and rhythm, normal S1 and S2, no gallops, no murmurs, no rubs ABDOMEN: Soft, nontender. No hepatosplenomegaly, normal bowel sounds, no guarding or rigidity. EXTREMITIES: No clubbing, no edema, no cyanosis, 2+ pulses and upper and lower extremities. MUSCULOSKELETAL: Muscle strength and tone normal. SPINE: No scoliosis or deformity SKIN: No rashes CENTRAL NERVOUS SYSTEM: Alert and oriented -3. No focal deficits, tone is normal in all 4 extremities. PSYCHIATRIC: Alert and oriented -3. Appropriate affect. Intact judgment and insight. - Labs CBC & Chem 7: 06/08/20 09:57 06/08/20 10:06 Labs: Abnormal Lab Results - Last 24 Hours (Table) 06/08/20 06/08/20 06/09/20 Range/Units 16:54 20:41 12:12 POC Glucose (mg/dL) 286 H 325 H 131 H (75-99) mg/dL Assessment and Plan Plan: Assessment: #1. Acute GI blood loss anemia, patient presented with a hemoglobin of 5.8, requiring transfusion with 2 units of packed red blood cells. Today's hemoglobin is 7.5, patient is scheduled for EGD and colonoscopy showed moderate duodenitis, and esophagitis, status post biopsies #2. Recent history of COVID 19 pneumonia, patient was undergone rehab at the [facility] on the [place], was still completing his Decadron course. Was not on any anticoagulation at the [facility] #3. Leukocytosis, rule out possibility of pneumonia, although patient denies any significant pulmonary symptoms #4. Chronic hypoxic respiratory failure related to recent history of COVID19 pneumonia #5. Former smoker #6. Diabetes mellitus type 2 #7. History of sleep apnea on CPAP #8. Previous history of myocardial infarction #9. Previous history of chronic CHF, with a diastolic dysfunction #10. General medical debility, gait instability, recent falls Plan: Patient is breathing comfortably, there has been no recurrence of GI bleeding, no labs are done today, hemodynamically stable, GI service is following. From pulmonary perspective patient is stable, he could be considered for discharge home when cleared by GI service. I performed a history & physical examination of the patient and discussed their management with my nurse practitioner, Lorie Talamantes. I reviewed the nurse practitioner's note and agree with the documented findings and plan of care. Lung sounds are positive for diminished breath sounds. The findings and the impression was discussed with the patient. I attest to the documentation by the nurse practitioner. Time with Patient: Less than 30
[2020-06-09 17:22] LABS: Glucose,Whole Blood 272 mg/dL (75-99)
[2020-06-09 20:21] LABS: Glucose,Whole Blood 361 mg/dL (75-99)
[2020-06-09] MEDS: LACTATED RINGERS 1,000 ML IV SCH (20:30)
[2020-06-09 22:19] LABS: Glucose,Whole Blood 291 mg/dL (75-99)
[2020-06-10] MEDS: SUCRALFATE 1 GM TAB PO SCH ×2 (05:51→12:06)
[2020-06-10 06:14] VITALS: PULSE 79
[2020-06-10 06:31] LABS: Glucose,Whole Blood 115 mg/dL (75-99)
[2020-06-10] MEDS: INSULIN ASPART (NovoLOG) 100 UNIT/ML VIAL SQ SCH ×2 (06:36→12:02)
[2020-06-10] MEDS: ASCORBIC ACID 500 MG TAB PO SCH (09:05)
[2020-06-10] MEDS: INSULN ASP PRT/INSULIN ASPART 100 UNIT/ML 10 ML VIAL SQ SCH (09:05)
[2020-06-10] MEDS: ZINC SULFATE 220 MG CAP PO SCH (09:05)
[2020-06-10] MEDS: CHOLECALCIFEROL 25 MCG (1000 IU) TABLET PO SCH (09:06)
[2020-06-10] MEDS: dexAMETHasone 2 MG TAB PO SCH (09:06)
[2020-06-10] MEDS: METOPROLOL TARTRATE 25 MG TAB PO SCH (09:06)
[2020-06-10] MEDS: PANTOPRAZOLE 40 MG/10 ML VIAL IVP SCH (09:07)
[2020-06-10] MEDS: CLOTRIMAZOLE/BETAMETH 1-0.05% CREAM 45 GM TUBE TOPICAL SCH (09:07)
[2020-06-10 09:47] VITALS: BP 114/63; TEMP 98.2
--- NOTE | 2020-06-10 10:13 | P.DS ---
Providers Date of admission: 06/07/20 09:11 Expected date of discharge: 06/10/20 Attending physician: Mariah Marie Consults: 06/07/20 09:12 Consult Physician Urgent Consulting Provider: Andi Stanley Consult Reason/Comments: gi hemorrhage Do you want consulting provider notified?: Yes 06/07/20 09:13 Consult Physician Urgent Consulting Provider: Alison Lemus Consult Reason/Comments: covid-19 pneumonia Do you want consulting provider notified?: Yes Primary care physician: Mariah Marie [facility] Course: HISTORY OF PRESENT ILLNESS This is a 60-year-old gentleman with known history of diabetes mellitus type 2, who was transferred from [facility] in [facility] secondary to burgundy stools. He also has elevated troponin vital pneumonia hypoxemia rest or failure on BiPAP, bacteriuria without pyuria, acute renal insufficiency, elevated transaminitis, and his abdomen mild lysis. He comes in from [facility], for which he presented on 05/28/2020 for a 2 day history of shortness of breath. Was diagnosed to have Covid infection at that time. And admitted to ICU at that time and also had arm blood loss anemia, for which she was seen by gastroenterology.. He was discharged to [facility] in [facility] on 06/03/2020 for short-term rehabilitation. We did stat labs and hemoglobin was 5.9, he was immediately transferred to the emergency room for evaluation. He was recently diagnosed to have covid infection s/p convalescent plasma, he was not a candidate for 7 days of ear that time secondary to elevation of transaminase. Received low-dose heparin Lovenox 40 mg daily, discharged with dexamethasone to complete 10 days. on dexamethasonne, hx of COPD, quit tob 3-4 wks ago Imaging studies are not [facility], shows type II CO with demand ischemia, from sepsis and rhabdo, EF 55%, with mild apical and septal hypokinesia. She also was tested for C. diff which was negative, has always azotemia most likely secondary to hemoconcentration, he was discharged facility with Carafate before meals and at bedtime, loperamide, dexamethasone 6 mg daily, metoprolol, Protonix 40 twice a day. Heart cath was 2005, EF 60%, normal coronaries. Hemoglobin was 10.4 on discharge from the other facility, with platelets of 253. WBC count of 13.51 In the emergency room, we have seen he is agitated, that he voided in his [place], and he's been waiting for 20 minutes to have somebody cleanup he is blanket. Nurses are assisting him currently. He was sinus rhythm, EKG shows LVH, heart rate 88, blood pressure is stable, 126/74, heart rate 77, T-max 97.6, O2 sats 97%, on room air, wbc 30k hemoglobin 5.9 occult stools positive, Covid negative patient would be seen consultation by pulmonary, and gas and nephrology . Patient might have steroid induced gastritis, dexamethasone is on hold, continue PPIs 40 twice a day Protonix, transfuse 2 units of packed red blood cell for initial hemoglobin of 5.9. inr1 0.0 06/08: Patient is adamant that he wants to eat a hamburger today. He is scheduled for EGD and colonoscopy on with GI. Patient has been difficult with nursing refusing to take medications and etc. Dr. Velez had long discussion with the patient regarding compliance with treatment and being appropriate to the staff. She is afebrile, heart rate 73, blood pressure 130/60, pulse ox 90% on 4 L nasal cannula. WBC 3.6, hemoglobin 7.5, platelet count 218. Sodium 133, potassium 4.4, chloride 101, CO2 31, BUN 20 creatinine 0.57. Patient will watch sugar reading of 64 and his insulin 7030 will be decreased to 40 units twice a day starting this evening. Iron 77, TIBC 285, iron saturation 27.02. ProCalcitonin 0.06. 06/09: Patient underwent EGD today as he did not complete the prep for the colonoscopy yesterday. Patient had refused to complete the prep and is now stating he does not want to have a colonoscopy. Patient underwent EGD which revealed moderate duodenitis, L a grade B esophagitis. Biopsies of the duodenum and antrum body were obtained. Patient was cleared to resume consistent carb diet. Patient is to continue Protonix twice daily and Carafate before meals and at bedtime. Patient may follow-up with GI in the outpatient setting for possible colonoscopy as an outpatient. Patient has been afebrile, blood pressure 70, blood pressure 124/61, pulse ox 97% on 3 L nasal cannula. A repeat blood work will be ordered for the morning. If hemoglobin is stable, patient will be discharged back to [facility] tomorrow. 06/10: Patient has been afebrile, heart rate 79, blood pressure 114/63, pulse ox 100% on 3 L nasal cannula. The chairs are running between 72 and 291. Patient has refused to have blood work done 2 days in row now. He does not want to go for colonoscopy. He had a blood-streaked stool yesterday and none today. He does have some epigastric tenderness. Patient prepared for discharge back to [facility] which she is refusing to go back there. He has contacted his daughter and they are planning to pick him up at [facility] if he is discharged there. We haven't changed discharge plan to home as patient walked independently with physical therapy. Home care to be arranged. Patient will be discharged home today in stable condition. ASSESSMENT AND PLAN 1. Acute GI bleed, suspect upper, steroid gastritis most likely secondary to dexamethasone 2. Acute blood loss severe anemia, status post 2 units of packed red blood cell transfusion. 3. Covid diagnosed 05/27/2020 4. Diabetes mellitus type 2, with hyperglycemia and hypoglycemia. 5. History of Type II CO, secondary to Covid 6. Obstructive sleep apnea on CPAP device, and O2 supplementation at at bedtime 7. COPD without exacerbation, 8. Tobacco dependency, quit 3 weeks prior to admission 9. GERD 10. Leukocytosis, possibly related to dexamethasone, however has leukemoid reaction. DISCHARGE PLAN home with home care. Impression and plan of care have been directed as dictated by the signing physician. Kristen An nurse practitioner acting as scribe for signing physician. Patient Condition at Discharge: Good Plan - Discharge Summary Discharge Rx Participant: Yes New Discharge Prescriptions: New INSULIN ASPART (NovoLOG) [NovoLOG (formulary)] 0 unit SQ ACHS vial Zinc Sulfate [Orazinc] 220 mg PO DAILY cap Ascorbic Acid [Vitamin C] 500 mg PO BID tab Cholecalciferol [Vitamin D3 (25 Mcg = 1000 Iu)] 125 mcg PO DAILY tablet Continue Loperamide HCl [Imodium A-D] 4 mg PO Q2H PRN PRN Reason: Diarrhea Albuterol Sulfate [Proair Respiclick] 1 puff INHALATION RT-Q6H PRN PRN Reason: Shortness Of Breath Albuterol Sulfate [Proair Respiclick] 1 puff INHALATION RT-Q6H Sucralfate [Carafate] 1 gm PO ACHS Pantoprazole Sodium [Protonix] 40 mg PO BID@0900,1700 Metoprolol Tartrate [Lopressor] 25 mg PO BID@0900,1700 Acetaminophen Tab [Tylenol] 650 mg PO Q6H PRN PRN Reason: Fever And/ Or Pain Clotrimazole/Betameth Cream [Lotrisone] 1 applic TOPICAL Q12H Zguard 1 applic TOPICAL Q12H Changed Insulin NPH/Reg Insulin 70/30 [humuLIN 70/30 VIAL] 40 unit SQ BID@0900,1700 #0 Discontinued Dexamethasone 6 mg PO DAILY@0900 Discharge Medication List Acetaminophen Tab [Tylenol] 650 mg PO Q6H PRN 06/05/20 [History] Albuterol Sulfate [Proair Respiclick] 1 puff INHALATION RT-Q6H 06/05/20 [Histo ry] Albuterol Sulfate [Proair Respiclick] 1 puff INHALATION RT-Q6H PRN 06/05/20 [History] Loperamide HCl [Imodium A-D] 4 mg PO Q2H PRN 06/05/20 [History] Metoprolol Tartrate [Lopressor] 25 mg PO BID@0900,1700 06/05/20 [History] Pantoprazole Sodium [Protonix] 40 mg PO BID@0900,1700 06/05/20 [History] Sucralfate [Carafate] 1 gm PO ACHS 06/05/20 [History] Clotrimazole/Betameth Cream [Lotrisone] 1 applic TOPICAL Q12H 06/07/20 [History] Zguard 1 applic TOPICAL Q12H 06/07/20 [History] Ascorbic Acid [Vitamin C] 500 mg PO BID tab 06/10/20 [Rx] Cholecalciferol [Vitamin D3 (25 Mcg = 1000 Iu)] 125 mcg PO DAILY tablet 06/10/20 [Rx] INSULIN ASPART (NovoLOG) [NovoLOG (formulary)] 0 unit SQ ACHS vial 06/10/20 [Rx] Insulin NPH/Reg Insulin 70/30 [humuLIN 70/30 VIAL] 40 unit SQ BID@0900,1700 #0 06/10/20 [Rx] Zinc Sulfate [Orazinc] 220 mg PO DAILY cap 06/10/20 [Rx] Follow up Appointment(s)/Referral(s): Alison Lemus MD [STAFF PHYSICIAN] - 10 Days Activity/Diet/Wound Care/Special Instructions: Patient can follow up with his PCP in one week. Discharge Disposition: HOME WITH HOME HEALTH SERVICES
[2020-06-10 11:53] LABS: Glucose,Whole Blood 72 mg/dL (75-99)
== END 2020-06-10 16:00 | disposition home health service (06) | DRG 378 ==
LOC: EC 07:41 → 3SCARD 09:11
PROVIDERS: ADMIT Family Medicine; ATTEND Family Medicine
PROC: 30233N1 Transfusion of Nonautologous Red Blood Cells into Peripheral Vein, Percutaneous Approach (ICD-10-PCS; 2020-06-07)
PROC: 0DB78ZX Excision of Stomach, Pylorus, Via Natural or Artificial Opening Endoscopic, Diagnostic (ICD-10-PCS; 2020-06-09)
PROC: 0DB98ZX Excision of Duodenum, Via Natural or Artificial Opening Endoscopic, Diagnostic (ICD-10-PCS; principal; 2020-06-09 09:50)
DX: K29.81 Duodenitis with bleeding (principal); D62 Acute posthemorrhagic anemia; J96.11 Chronic respiratory failure with hypoxia; I50.32 Chronic diastolic (congestive) heart failure; K21.01 Gastro-esophageal reflux disease with esophagitis, with bleeding; E11.65 Type 2 diabetes mellitus with hyperglycemia; J44.9 Chronic obstructive pulmonary disease, unspecified; Z79.4 Long term (current) use of insulin; Z20.822 Contact with and (suspected) exposure to COVID-19; G47.33 Obstructive sleep apnea (adult) (pediatric); K21.9 Gastro-esophageal reflux disease without esophagitis; E66.9 Obesity, unspecified; R26.89 Other abnormalities of gait and mobility; R29.6 Repeated falls; T38.0X5A Adverse effect of glucocorticoids and synthetic analogues, initial encounter; D75.1 Secondary polycythemia; M62.81 Muscle weakness (generalized); R26.9 Unspecified abnormalities of gait and mobility; Z68.36 Body mass index [BMI] 36.0-36.9, adult; I25.2 Old myocardial infarction; Z87.891 Personal history of nicotine dependence; Z87.01 Personal history of pneumonia (recurrent); Z79.899 Other long term (current) drug therapy; Z86.16 Personal history of COVID-19; Z82.49 Family history of ischemic heart disease and other diseases of the circulatory system; Z82.5 Family history of asthma and other chronic lower respiratory diseases
CPT/HCPCS: 36415; 43239; 70450; 71045; 72125; 80048; 80053; 81003; 82272; 83540; 83550; 84145; 85025; 85027; 85610; 85730; 86850; 86900; 86901; 86920; 87324; 87635; 88305; 93005; 94760; 96361; 96374; 99284; 99291